=== PATIENT | male | born 1950 | race Asian ===

== ENCOUNTER 2017-04-16 19:46 | Outpatient (CLI) | payer MEDICARE, OTHER ==
--- NOTE | 2017-04-17 00:59 | Ultrasound Report ---
EXAM: BILATERAL LOWER EXTREMITY VENOUS ULTRASOUND EXAM DATE: 04/16/2017 08:46 PM. CLINICAL HISTORY: Deep venous thrombosis. On blood thinners. COMPARISON: Ultrasound duplex extremity veins right lower extremity 12/09/2010. TECHNIQUE: Real-time sonographic vascular imaging was performed by the spinal surgeon through the lower extremities utilizing both color-flow and Doppler spectral analysis. Multiple scheduling representative static i mages were saved for review. FINDINGS: Right: Common Femoral Vein (CFV): Normal. CFV-GSV Junction: Normal. Profunda Femoral Vein (PFV): Normal. Femoral Vein (FV) Prox: Normal. Femoral Vein (FV) Mid: Normal. Femoral Vein (FV) Dist: Normal. Popliteal Vein: Normal. Posterior Tibial Veins: Normal. Peroneal Veins: Normal. Left: Common Femoral Vein (CFV): Normal. CFV-GSV Junction: Normal. Profunda Femoral Vein (PFV): Normal. Femoral Vein (FV) Prox: Normal. Femoral Vein (FV) Mid: Normal. Femoral Vein (FV) Dist: Normal. Popliteal Vein: Normal. Posterior Tibial Veins: Not well seen Peroneal Veins: Not well seen IMPRESSION: No evidence for deep venous thrombosis bilaterally. See above. [facility] Referring Provider Line: [phone] SITE ID: [id number]
== END 2017-04-16 19:47 | disposition home or self-care (01) ==
LOC: DI 19:46
PROVIDERS: ATTEND Internal Medicine Nephrology
DX: I82.401 Acute embolism and thrombosis of unspecified deep veins of right lower extremity (principal)
CPT/HCPCS: 93970

== ENCOUNTER 2017-08-07 08:57 | Outpatient (CLI) | payer MEDICARE, OTHER ==
--- NOTE | 2017-08-07 17:13 | Ultrasound Report ---
ABDOMEN ULTRASOUND COMPLETE: 08/07/2017 COMPARISON: None. INDICATION: Abdominal distention. History of kidney transplant. TECHNIQUE: Sonographic evaluation of the abdomen was performed. FINDINGS: The liver appears normal in size and contour without masses. Portal venous flow is direct ed toward the liver. There is no ascites. The common bile duct is nondilated. Gallbladder evaluation is unremarkable without gallstones, wall thickening, or surrounding fluid. The kidneys are atrophic, consistent with a history of chronic renal disease and renal transplant. T he pancreas is not well visualized due to overlying bowel gas. The spleen is grossly unremarkable. Transplant kidney measures 12.5 cm in long axis, and demonstrates normal color flow about the hilum. There is no free fluid in the pelvis. IMPRESSION: 1. GROSSLY NORMAL APPEARANCE OF TRANSPLANTED KIDNEY IN THE PELVIS. 2. OTHERWISE, NEGATIVE ABDOMEN EVALUATION, APART FROM CHRONIC INTRINSIC RENAL DISEASE. 14:9:50 JOB #: [id number] EXT JOB #:[id number]
--- NOTE | 2017-08-07 18:29 | CT Report ---
NONCONTRAST CHEST CT: 08/07/2017 No comparisons. INDICATION: Pleural disease. Immunocompromised with cough. TECHNIQUE: Noncontrast chest CT was performed from the thoracic inlet to the adrenal glands at 5 mm collimation. Coronal and sagittal reformats were performed. FINDINGS: There is left pulmonary volume loss. There are calcified and noncalcified pleural plaques, predominantly the mid and lower left lung. No nodules or pulmonary masses are demonstrated in other regards. There are dense atherosclerotic calcifications of the aorta and coronary arteries. There is no mediastinal or hilar adenopathy seen in the absence of intravenous contrast. The kidneys appear atrophic. Limited noncontrast evaluation of the upper abdomen is grossly unremarkable, apart from a right upper quadrant anterior eggshell calcification, of unlikely significance. Prior sternotomy is noted. No bone lesions are seen in other regards. Soft tissues are otherwise grossly unremarkable. IMPRESSION: LEFT CALCIFIED AND NONCALCIFIED PLEURAL PLAQUES. ATROPHIC KIDNEYS ARE CONSISTENT WITH CHRONIC KIDNEY DISEASE. CORONARY ARTERY DISEASE. JOB #: [id number] EXT JOB #: [id number] [facility]
== END 2017-08-07 08:58 | disposition home or self-care (01) ==
LOC: DI 08:57
PROVIDERS: ATTEND Family Medicine
DX: R91.8 Other nonspecific abnormal finding of lung field (principal); I25.10 Atherosclerotic heart disease of native coronary artery without angina pectoris; R14.0 Abdominal distension (gaseous); N26.1 Atrophy of kidney (terminal); N18.9 Chronic kidney disease, unspecified; Z94.0 Kidney transplant status
CPT/HCPCS: 71250; 76700

== ENCOUNTER 2017-11-27 22:45 | Inpatient (IN) | payer MEDICARE, OTHER ==
[2017-11-27] MEDS ORDERED: ALBUTEROL NEB 2.5 MG/3 ML INH STA (23:01)
--- NOTE | 2017-11-27 23:11 | ED Physician Documentation ---
PD HPI URI - Stated complaint Stated Complaint: FEVER/SOA - Chief complaint Chief Complaint: Resp - History obtained from History obtained from: Patient, Family - History of Present Illness Timing - onset: Today Timing duration: Hours Timing details: Gradual onset, Still present Associated symptoms: Fever, Chills, Productive cough Improves by: Rest, Medication Similar symptoms before: Diagnosis (pneumonia) Recently seen: Not recently seen - Additional information Additional information: 67-year-old male status post renal transplant and CABG has was in his usual state of health yesterday he had a slight cough. Today he did not feel well this afternoon and after taking a shower this evening, he became acutely short of breath and developed a fever. He is come to the emergency department with fever and shortness of breath and the symptoms have come on rather suddenly. Review of Systems Constitutional: reports: Fever, Chills Eyes: denies: Decreased vision Ears: denies: Ear pain Nose: reports: Congestion. denies: Rhinorrhea / runny nose Throat: denies: Sore throat Cardiac: denies: Chest pain / pressure, Palpitations Respiratory: reports: Dyspnea, Cough, Wheezing GI: denies: Abdominal Pain, Nausea, Vomiting : denies: Dysuria, Frequency Skin: denies: Rash Musculoskeletal: denies: Neck pain Neurologic: reports: Generalized weakness. denies: Focal weakness, Numbness PD PAST MEDICAL HISTORY - Past Medical History Past Medical History: Yes Cardiovascular: Congestive heart failure, Hypertension, High cholesterol, Coronary artery disease - Past Surgical History Past Surgical History: Yes Cardiovascular: Coronary stent - Present Medications Home Medications: Ambulatory Orders Medication Instructions Recorded Confirmed Allopurinol 150 mg PO QPM 11/28/17 Aspirin 325 mg PO DAILY 11/28/17 Carvedilol [Coreg] 6.25 mg PO DAILY 11/28/17 Clopidogrel [Plavix] 75 mg PO DAILY 11/28/17 Folic Acid 1 mg PO DAILY 11/28/17 Gabapentin 300 mg PO DAILY 11/28/17 Insulin Aspart [NovoLOG] 11/28/17 Insulin Glargine [Lantus Solostar] 20 unit ACHS 11/28/17 11/28/17 Lisinopril/Hydrochlorothiazide 0.5 each PO 11/28/17 [Lisinopril-Hctz 10-12.5 mg Tab] Magnesium Oxide [Magnesium] 400 mg PO BID 11/28/17 11/28/17 - Allergies Allergies/Adverse Reactions: Allergies Allergy/AdvReac Type Severity Reaction Status Date / Time ibuprofen AdvReac Unknown Verified 11/27/17 22:56 - Social History Does the pt smoke?: No Smoking Status: Never smoker PD ED PE NORMAL - Vitals Vital signs reviewed: Yes (febrile and hypertensive) - General General: Alert and oriented X 3, Well developed/nourished, Other (tachypneic at rest) - HEENT HEENT: Atraumatic, PERRL, EOMI, Ears normal, Moist mucous membranes, Pharynx benign - Neck Neck: Supple, no meningeal sign, No bony TTP - Cardiac Cardiac: RRR, No murmur - Respiratory Respiratory: Other (tachypneic with left mid lung field rhonchi anteriorly diminished breath sounnds bilaterlly) - Abdomen Abdomen: Soft, Non tender - Back Back: No CVA TTP, No spinal TTP - Derm Derm: Normal color, Warm and dry, No rash - Extremities Extremities: No deformity, No edema - Neuro Neuro: No motor deficit, No sensory deficit Eye Opening: Spontaneous Motor: Obeys Commands Verbal: Oriented GCS Score: 15 Results - Vitals Vitals: Vital Signs - 24 hr 11/27/17 11/27/17 11/27/17 22:50 23:09 23:20 Temperature 39.1 C H Heart Rate 90 87 84 Respiratory 20 30 H 20 Rate Blood Pressure 187/84 H 182/82 H O2 Saturation 94 93 11/27/17 11/28/17 23:48 00:47 Temperature 39.3 C H 38.5 C H Heart Rate 81 77 Respiratory 29 H 25 H Rate Blood Pressure 163/73 H 128/61 O2 Saturation 96 97 Oxygen O2 Source Nasal cannula Oxygen Flow Rate 2 - EKG (time done) 2305 Rate: Rate (enter#) (88) Intervals: Prolonged AL Ischemia: Q waves (consistent with anterior ) Compare to prior EKG: Old EKG unavailable Computer interpretation: Agree with computer - Labs Labs: Laboratory Tests 11/27/17 11/27/17 11/27/17 22:57 23:20 23:20 WBC 8.6 RBC 3.98 L Hgb 13.5 L Hct 40.4 L MCV 101.3 H MCH 33.9 H MCHC 33.5 RDW 14.0 Plt Count 111 L MPV 9.8 Neut # 6.7 H Lymph # 0.9 L Trigg # 0.7 Eos # 0.2 Baso # 0.1 Absolute Nucleated RBC 0.00 Nucleated RBC % 0.0 Sodium 140 Potassium 4.8 Chloride 106 Carbon Dioxide 20 L Anion Gap 14.0 H BUN 30 H Creatinine 1.3 H Estimated GFR (MDRD) 55 L Glucose 115 H Calcium 8.9 Total Bilirubin 1.4 H AST 31 ALT 22 Alkaline Phosphatase 55 Total Protein 6.8 Albumin 4.1 Globulin 2.7 Albumin/Globulin Ratio 1.5 Lipase 16 L Influenza A (Rapid) Negative Influenza B (Rapid) Negative Influenza Types A,B Ag - - Rads (name of study) 1 view chest Radiology: Prelim report reviewed (Impression: Mild CHF, concomitant pneumonia difficult to exclude given history.), EMP read indepedently, See rad report Procedures - IVC sono (time) 2320 Bedside IVC sono: IVC measures (cm) (1.5), IVC collapsed c insp (cm) (1.1), Collapsibility index (.2666), Euvolemia PD MEDICAL DECISION MAKING - ED course Complexity details: reviewed old records, reviewed results, re-evaluated patient , considered differential, d/w patient, d/w family ED course: 67-year-old male with history of renal failure status post transplant and CABG has developed an acute fever and appears to have bilateral infiltrates on chest x-ray. He is administered a DuoNeb treatment on arrival to the emergency department. His volume status appears euvolemic on arrival and I do not think he is in acute failure. He is administered saline at 150 mL's an hour. He is administered Rocephin 1 g intravenously. Departure - Departure Disposition: [address] [facility] DC/Xfer Clinical Impression: Pneumonia Qualifiers: Pneumonia type: due to unspecified organism Laterality: bilateral Lung location : lower lobe of lung Qualified Code(s): J18.9 - Pneumonia, unspecified organism Condition: Stable
[2017-11-27] MEDS ORDERED: ACETAMINOPHEN 325 MG TABLET PO STA (23:21)
[2017-11-27 23:53] LABS: BASOPHILS # (AUTO) 0.1 10^3/uL (0.0-0.1); BASOPHILS % (AUTO) 0.6 %; EOSINOPHILS # (AUTO) 0.2 10^3/uL (0.0-0.7); EOSINOPHILS % (AUTO) 2.5 %; HGB - HEMOGLOBIN 13.5 g/dL (14.0-18.0); LYMPHOCYTES # (AUTO) 0.9 10^3/uL (1.5-3.5); LYMPHOCYTES % (AUTO) 10.8 %; MEAN CORPUSCULAR HEMOGLOBIN 33.9 pg (27.0-31.0); MEAN CORPUSCULAR HGB CONC 33.5 g/dL (32.0-36.0); MEAN CORPUSCULAR VOLUME 101.3 fL (80.0-94.0); MEAN PLATELET VOLUME 9.8 fL (7.4-11.4); MONOCYTES # (AUTO) 0.7 10^3/uL (0.0-1.0); MONOCYTES % (AUTO) 8.3 %; NEUTROPHILS # (AUTO) 6.7 10^3/uL (1.5-6.6); NEUTROPHILS % (AUTO) 77.8 %; PLT - PLATELET COUNT 111 10^3/uL (130-450); RED BLOOD COUNT 3.98 10^6/uL (4.70-6.10); WHITE BLOOD COUNT 8.6 x10^3/uL (4.8-10.8)
[2017-11-28 00:01] LABS: ALBUMIN 4.1 g/dL (3.2-5.5); ALBUMIN/GLOBULIN RATIO 1.5 (1.0-2.2); BILIRUBIN,TOTAL 1.4 mg/dL (0.2-1.0); CALCIUM 8.9 mg/dL (8.5-10.3); CREATININE 1.3 mg/dL (0.6-1.2); TOTAL PROTEIN 6.8 g/dL (6.7-8.2)
--- NOTE | 2017-11-28 00:02 | XRAY Preliminary Report ---
Exam: XR CHEST 1 VIEW X-RAY IMPRESSION: Mild CHF. Concomitant pneumonia difficult to exclude given history. [facility] SITE ID: [id number]
[2017-11-28] MEDS ORDERED: cefTRIAXone 1 GM in SODIUM CHLORIDE 0.9% MINIBAG 100 ML IV STA (00:04)
[2017-11-28] MEDS ORDERED: SODIUM CHLORIDE 0.9% 1,000 ML IV ONE (00:04)
--- NOTE | 2017-11-28 00:07 | XRAY Report ---
EXAM: CHEST RADIOGRAPHY EXAM DATE: 11/27/2017 11:39 PM. CLINICAL HISTORY: Cough, congestion, fever. COMPARISON: CT and chest x-ray 08/07/2017. TECHNIQUE: 1 view. FINDINGS: Lungs/Pleura: Vascular congestion. Diffuse minimal interstitial opacities. Left lung pleural parenchy mal scarring present. No large effusion. No gross pneumothorax. Mediastinum: Mild cardiomegaly. No mediastinal shift. Other: Post CABG. IMPRESSION: Mild CHF. Concomitant pneumonia difficult to exclude given history. [facility] Referring Provider Line: [phone] SITE ID: [id number]
[2017-11-28] MEDS ORDERED: ZOLPIDEM 5 MG TABLET PO PRN (01:24)
[2017-11-28] MEDS ORDERED: ACETAMINOPHEN 325 MG TABLET PO PRN (01:24)
[2017-11-28] MEDS ORDERED: HYDROmorphone 1 MG/ML SYRINGE IVP PRN (01:24)
[2017-11-28] MEDS ORDERED: PROCHLORPERAZINE 10 MG/2 ML VIAL IVP PRN (01:24)
[2017-11-28] MEDS ORDERED: MORPHINE 2 MG/ML CARPUJECT IVP PRN (01:24)
[2017-11-28 01:47] LABS: BILIRUBIN,URINE NEGATIVE (NEGATIVE); GLUCOSE, URINE (UA) NEGATIVE (NEGATIVE); KETONES,URINE (UA) NEGATIVE (NEGATIVE); LEUKOCYTE ESTERASE, URINE NEGATIVE (NEGATIVE); NITRITE,URINE NEGATIVE (NEGATIVE); OCCULT BLOOD,URINE NEGATIVE (NEGATIVE); PH,URINE 5.5 PH (5.0-7.5); PROTEIN,URINE TRACE mg/dL (NEGATIVE); UROBILINOGEN,URINE 0.2 (NORMAL) E.U./dL (NORMAL)
[2017-11-28 02:00] LABS: BACTERIA,URINE None Seen /HPF (None Seen); CLARITY,URINE CLEAR (CLEAR); RBC,URINE None Seen /HPF (0-5); SPERM,URINE PRESENT; SQUAMOUS EPITHELIAL CELL,UR NONE SEEN (<= Few)
[2017-11-28] MEDS ORDERED: SODIUM CHLORIDE 0.9% 1,000 ML IV SCH (02:00)
[2017-11-28] MEDS: AZITHROMYCIN INJ 500 MG in SODIUM CHLORIDE 0.9% 250 ML IV SCH (03:10)
--- NOTE | 2017-11-28 04:00 | HISTORY & PHYSICAL EXAMINATION ---
DATE OF SERVICE: Physician: Edie Villegas MD DATE OF ADMISSION: 11/28/2017 HISTORY OF PRESENT ILLNESS: This is a 67-year-old male of [place] descent who has a history of diabetes on insulin, hypertension, coronary artery disease with prior bypass surgery, kidney transplant. The patient developed a cough yesterday and then today felt unwell , and then developed a fever and rapidly worsening shortness of breath, and presented to the emergency room. He required nebulizer treatments in the emergency room for significant shortness of breath and his chest x-ray shows probable pneumonia, and he is admitted for management of a fever, pneumonia with underlying diabetes and renal transplant. PAST MEDICAL HISTORY: Diabetes mellitus, hypertension, bypass surgery, kidney transplant 6 years ago, hyperlipidemia. REVIEW OF SYSTEMS: The patient and family report that a family was sick with a cold and cough and fever, and maybe this is where he caught the infection from since he is immunocompromised on tamsulosin. A comprehensive review of systems was performed and the pertinent positives are as dictated here. ALLERGIES: IBUPROFEN, WHICH CAUSED AN UNKNOWN REACTION. MEDICATIONS AT HOME (this may not be an entire list) 1. Allopurinol 150 mg p.o. q.p.m. 2. Adult dose aspirin daily. 3. Carvedilol 6.25 mg p.o. daily. 4. Plavix 75 mg p.o. daily. 5. Folic acid 1 mg p.o. daily. 6. Gabapentin 300 mg p.o. daily. 7. Possibly NovoLog insulin, unknown dose daily. 8. Lantus insulin 20 units possibly at a.c. and at bedtime. 9. Lisinopril/HCTZ 10/12.5 mg half a tablet unknown frequency. 10. Magnesium 400 mg p.o. b.i.d. 11. Possibly Tacrolumus 12. Possibly Prednisone SOCIAL HISTORY: The patient never smoked, drinks no alcohol, uses no illicit drugs. PHYSICAL EXAMINATION GENERAL: A [place] male who is supine in bed and appears fatigued, inno respiratory distress. VITAL SIGNS: Blood pressure 130/49, heart rate 70-80 in sinus rhythm. Maximum temperature was 39.3 degrees C, respiratory rate was 29 in the emergency room and is now 18, oxygen saturation 97% on 2 liters per nasal cannula. HEENT: Unremarkable with moist oral mucosa. NECK: Shows no JVD in a supine position. No carotid bruits are heard. No thyromegaly or lymphadenopathy seen. CHEST: Diminished breath sounds in bilateral bases and the left has scant rales. HEART: Sounds are normal, without audible murmur. ABDOMEN: Soft with normal bowel sounds. No organomegaly. EXTREMITIES: Show no clubbing, cyanosis or edema. NEUROLOGIC: Neurologically intact grossly. LABORATORIES: Sodium 140, potassium 4.8, BUN 30; creatinine 1.3, which appears to be his baseline. Glucose 115. Lactic acid 0.9, bilirubin 1.4. Troponin 0.05. BNP 946. White blood count 8.6 with a left shift, hemoglobin 13.5 with an elevated MCV of 101, platelet count low at 111. Urinalysis unremarkable. Influenza A and B by serology is negative. Chest x-ray: Possible bilateral pulmonary edema or bilateral infiltrates. EKG: Normal sinus rhythm at 88. QS waves are present in V1 through V3 with minimal J-point elevation in V1 and V2. Inferolateral ST-T abnormalitie. And all these findings are old from a prior EKG. IMPRESSION/DIAGNOSES 1. Community-acquired pneumonia with fever, shortness of breath and bilateral infiltrates vs CHF on chest x-ray. Possible CHF with elevated BNP (but his baseline BNP is unknown) . 2. Kidney transplant with good renal function. 3. Coronary artery disease history with coronary bypass. 4. Hypertension history. 5. Diabetes mellitus, on insulin. PLAN: Place the patient on telemetry. Cycle troponins to rule out SD. Follow BNP as well, as the chest x-ray, since is inconclusive. Start empiric antibiotics for community -acquired pneumonia: IV Zithromax and IV ceftriaxone. Obtain blood and sputum cultures before starting antibiotics. Confirm the patient's insulin doses and continue these, along with fingersticks and sliding scale insulin coverage and a diabetic diet. Continue with IV hydration. Confirm his other meds, with the help of our Pharmacist, as the list may be inaccurate. CODE STATUS: FULL CODE. DEEP VENOUS THROMBOSIS PROPHYLAXIS: Lovenox. ATTESTATION: The patient is expected to be discharged or transferred to another facility within 96 hours: Yes. TD: 11/28/2017 03:58 [facility]
[2017-11-28] MEDS: SODIUM CHLORIDE FLUSH 0.9% 10 ML SYRINGE IVP SCH ×3 (05:48→20:52)
[2017-11-28 06:08] LABS: BASOPHILS # (AUTO) 0.1 10^3/uL (0.0-0.1); BASOPHILS % (AUTO) 0.8 %; EOSINOPHILS # (AUTO) 0.2 10^3/uL (0.0-0.7); EOSINOPHILS % (AUTO) 2.9 %; HGB - HEMOGLOBIN 12.1 g/dL (14.0-18.0); LYMPHOCYTES # (AUTO) 0.8 10^3/uL (1.5-3.5); LYMPHOCYTES % (AUTO) 10.7 %; MEAN CORPUSCULAR HEMOGLOBIN 33.4 pg (27.0-31.0); MEAN CORPUSCULAR HGB CONC 32.7 g/dL (32.0-36.0); MEAN CORPUSCULAR VOLUME 102.3 fL (80.0-94.0); MEAN PLATELET VOLUME 9.5 fL (7.4-11.4); MONOCYTES # (AUTO) 0.8 10^3/uL (0.0-1.0); MONOCYTES % (AUTO) 10.2 %; NEUTROPHILS # (AUTO) 5.7 10^3/uL (1.5-6.6); NEUTROPHILS % (AUTO) 75.4 %; PLT - PLATELET COUNT 102 10^3/uL (130-450); RED BLOOD COUNT 3.61 10^6/uL (4.70-6.10); WHITE BLOOD COUNT 7.6 x10^3/uL (4.8-10.8)
[2017-11-28 06:13] LABS: CALCIUM 8.4 mg/dL (8.5-10.3); CREATININE 1.4 mg/dL (0.6-1.2)
[2017-11-28 06:21] LABS: HB2 TOTAL 13.3 g/dL; HEMOGLOBIN A1C 0.71 g/dL
[2017-11-28] MEDS ORDERED: INSULIN GLARGINE 300 UNIT/3 ML PEN SUBQ SCH (07:00)
--- NOTE | 2017-11-28 07:37 | PROVIDER PROGRESS NOTE ---
Subjective - Prog Note Date Prog Note Date: 11/28/17 Prog Note Time: 07:37 - Subjective Pt reports feeling: No change Subjective: Dane claims that he has been tired today, and slept well last night. He denies SOB, chest pain, N/V or a new cough. Current Medications - Current Medications Current Medications: Active Medications Acetaminophen (Tylenol) 650 mg PO Q4HR PRN PRN Reason: Pain or Fever > 38C (100.4F) Allopurinol (Zyloprim) 150 mg PO QPM [facility] Aspirin (Ecotrin) 325 mg PO DAILY [facility] Carvedilol (Coreg) 6.25 mg PO BID [facility] Clopidogrel Bisulfate (Plavix) 75 mg PO DAILY [facility] Last Admin: 11/28/17 08:11 Dose: 75 mg Enoxaparin Sodium (Lovenox) 40 mg SUBQ DAILY [facility] Last Admin: 11/28/17 08:11 Dose: 40 mg Folic Acid () 1 mg PO DAILY [facility] Last Admin: 11/28/17 08:12 Dose: 1 mg Furosemide (Lasix Inj 40 Mg Vial) 40 mg IVP DAILY [facility] Last Admin: 11/28/17 12:51 Dose: 40 mg Gabapentin (Neurontin) 300 mg PO BID [facility] Hydromorphone HCl (Dilaudid Inj Syringe) 0.5 mg IVP Q2H PRN PRN Reason: Pain 8 to 10 Ceftriaxone Sodium 1 gm/ (Sodium Chloride) 100 mls @ 200 mls/hr IV DAILY@2100 [facility] Azithromycin 500 mg/ Sodium (Chloride) 250 mls @ 250 mls/hr IV DAILY@0700 [facility] Last Infusion: 11/28/17 04:10 Dose: Infused Insulin Aspart (Novolog) 1 - 5 unit SUBQ 0800,1200,1700,2100 [facility] PRN Reason: Protocol Last Admin: 11/28/17 16:12 Dose: 3 unit Insulin Glargine (Lantus Solostar) 20 unit SUBQ QPM [facility] Magnesium Oxide (Mag Ox) 800 mg PO 1200,1700 [facility] Last Admin: 11/28/17 16:11 Dose: 800 mg Morphine Sulfate (Morphine (Carpuject)) 2 mg IVP Q2HR PRN PRN Reason: Dyspnea [Lisinopril-Hctz 10- (12.5 Mg Tab] Tab) 0.5 each PO DAILY [facility] Last Admin: 11/28/17 11:57 Dose: 0.5 each (Cinacalcet Hcl [ (Sensipar] 30 Mg) Tab) 1 each PO Q48H [facility] Last Admin: 11/28/17 11:57 Dose: 1 each (Myfortic) Mycophenolate 180 Mg Er Tab 1 each PO BID [facility] Polyethylene Glycol (Miralax) 17 gm PO DAILY [facility] Last Admin: 11/28/17 08:12 Dose: Not Given Pravastatin Sodium (Pravachol) 40 mg PO DAILY [facility] Last Admin: 11/28/17 11:56 Dose: Not Given Prednisone (Deltasone) 5 mg PO DAILY [facility] Last Admin: 11/28/17 08:10 Dose: 5 mg Prochlorperazine Edisylate (Compazine Inj) 10 mg IVP Q6HR PRN PRN Reason: Nausea / Vomiting Ranitidine HCl (Zantac) 300 mg PO QPM [facility] Sodium Chloride (Normal Saline Flush 0.9%) 10 ml IVP PRN PRN PRN Reason: NEEDED PER PROVIDER ORDERS Last Admin: 11/28/17 12:54 Dose: 20 ml Sodium Chloride (Normal Saline Flush 0.9%) 10 ml IVP Q8HR [facility] Last Admin: 11/28/17 08:16 Dose: 10 ml Tacrolimus (Prograf) 1 mg PO BID [facility] Last Admin: 11/28/17 08:08 Dose: 1 mg Tamsulosin HCl (Flomax) 0.4 mg PO QPM [facility] Zolpidem Tartrate (Ambien) 5 mg PO QPM PRN PRN Reason: Insomnia Carvedilol [Coreg] 6.25 mg PO BID 11/28/17 Cinacalcet HCl [Sensipar] 30 mg PO Q2D@1200 11/28/17 Clopidogrel [Plavix] 75 mg PO DAILY 11/28/17 Insulin Aspart [NovoLOG] 0 - 15 units SUBQ TIDWM PRN 11/28/17 Insulin Glargine [Lantus Solostar] 20 unit SUBQ QPM 11/28/17 Lisinopril/Hydrochlorothiazide [Lisinopril-Hctz 10-12.5 mg Tab] 0.5 tab PO DAILY 11/28/17 Magnesium Oxide [Magnesium] 800 mg PO 1200,1700 11/28/17 Mycophenolate Sodium [Mycophenolic Acid] 180 mg PO BID 11/28/17 Pravastatin [Pravachol] 40 mg PO DAILY 11/28/17 PredniSONE [PredniSONE INTENSOL] 5 mg PO DAILY 11/28/17 RX: Allopurinol 150 mg PO QPM 11/28/17 RX: Aspirin EC [Ecotrin] 325 mg PO DAILY 11/28/17 RX: Folic Acid 1 mg PO DAILY 11/28/17 RX: Gabapentin 300 mg PO BID 11/28/17 RX: Tacrolimus 1 mg PO BID 11/28/17 Tamsulosin [Flomax] 0.4 cap PO QPM 11/28/17 raNITIdine [Zantac] 300 mg PO QPM 11/28/17 Objective - Vital Signs/Intake & Output Reviewed Vital Signs: Yes Vital Signs: Vital Signs x48h Temp Pulse Pulse Resp BP BP Pulse Ox 11/28/17 05:53 37.3 C 68 20 137/64 H 100 11/28/17 02:20 37.6 C H 73 18 129/49 L 97 11/28/17 01:38 37.4 C 72 23 133/61 H 98 Intake & Output: Intake & Output 11/25/17 11/26/17 11/27/17 11/28/17 23:59 23:59 23:59 23:59 Intake Total 350 Output Total 50 Balance 300 - Objective General Appearance: positive: No acute distress, Alert Eyes Bilateral: positive: Normal inspection Eyes: OU Conjunctivae pale ENT: positive: ENT inspection nml, Pharynx nml, Dry mucous membranes Neck: positive: Nml inspection, Thyroid nml Respiratory: positive: Chest non-tender, No respiratory distress, Wheezes, Other (crackles) - Lab Results Fish Bones: 11/29/17 04:55 11/29/17 04:55 Other Labs: Lab Results x24hrs 11/28/17 11/28/17 11/28/17 Range/Units 05:49 05:49 05:49 WBC (4.8-10.8) x10^3/uL RBC (4.70-6.10) 10^6/uL Hgb (14.0-18.0) g/dL Hct (42.0-52.0) % MCV (80.0-94.0) fL MCH (27.0-31.0) pg MCHC (32.0-36.0) g/dL RDW (12.0-15.0) % Plt Count (130-450) 10^3/uL MPV (7.4-11.4) fL Neut # (1.5-6.6) 10^3/uL Lymph # (1.5-3.5) 10^3/uL Hinds # (0.0-1.0) 10^3/uL Eos # (0.0-0.7) 10^3/uL Baso # (0.0-0.1) 10^3/uL Absolute Nucleated RBC x10^3/uL Nucleated RBC % /100WBC Sodium (135-145) mmol/L Potassium (3.5-5.0) mmol/L Chloride (101-111) mmol/L Carbon Dioxide (21-32) mmol/L Anion Gap (6-13) BUN (6-20) mg/dL Creatinine (0.6-1.2) mg/dL Estimated GFR (MDRD) (>89) Glucose (70-100) mg/dL Glycated Hemoglobin 7.0 H (4.6-6.2) % Estim Average Glucose 154 H (70-100) Calcium (8.5-10.3) mg/dL Troponin I 0.06 (<0.49) ng/mL B-Natriuretic Peptide 978 H (5-100) pg/mL Urine Color Urine Clarity (CLEAR) Urine pH (5.0-7.5) PH Ur Specific [place] (1.002-1.030) Urine Protein (NEGATIVE) mg/dL Urine Glucose (UA) (NEGATIVE) mg/dL Urine Ketones (NEGATIVE) mg/dL Urine Occult Blood (NEGATIVE) Urine Nitrite (NEGATIVE) Urine Bilirubin (NEGATIVE) Urine Urobilinogen (NORMAL) E.U./dL Ur Leukocyte Esterase (NEGATIVE) Urine RBC (0-5) /HPF Urine WBC (0-3) /HPF Ur Squamous Epith Cells (<= Few) Urine Bacteria (None Seen) /HPF Urine Sperm Urine Culture Comments 11/28/17 11/28/17 11/28/17 Range/Units 05:49 05:49 01:25 WBC 7.6 (4.8-10.8) x10^3/uL RBC 3.61 L (4.70-6.10) 10^6/uL Hgb 12.1 L (14.0-18.0) g/dL Hct 36.9 L (42.0-52.0) % MCV 102.3 H (80.0-94.0) fL MCH 33.4 H (27.0-31.0) pg MCHC 32.7 (32.0-36.0) g/dL RDW 14.0 (12.0-15.0) % Plt Count 102 L (130-450) 10^3/uL MPV 9.5 (7.4-11.4) fL Neut # 5.7 (1.5-6.6) 10^3/uL Lymph # 0.8 L (1.5-3.5) 10^3/uL Hinds # 0.8 (0.0-1.0) 10^3/uL Eos # 0.2 (0.0-0.7) 10^3/uL Baso # 0.1 (0.0-0.1) 10^3/uL Absolute Nucleated RBC 0.00 x10^3/uL Nucleated RBC % 0.1 /100WBC Sodium 138 (135-145) mmol/L Potassium 5.0 (3.5-5.0) mmol/L Chloride 105 (101-111) mmol/L Carbon Dioxide 23 (21-32) mmol/L Anion Gap 10.0 (6-13) BUN 32 H (6-20) mg/dL Creatinine 1.4 H (0.6-1.2) mg/dL Estimated GFR (MDRD) 51 L (>89) Glucose 127 H (70-100) mg/dL Glycated Hemoglobin (4.6-6.2) % Estim Average Glucose (70-100) Calcium 8.4 L (8.5-10.3) mg/dL Troponin I (<0.49) ng/mL B-Natriuretic Peptide (5-100) pg/mL Urine Color YELLOW Urine Clarity CLEAR (CLEAR) Urine pH 5.5 (5.0-7.5) PH Ur Specific [place] 1.025 (1.002-1.030) Urine Protein TRACE (NEGATIVE) mg/dL Urine Glucose (UA) NEGATIVE (NEGATIVE) mg/dL Urine Ketones NEGATIVE (NEGATIVE) mg/dL Urine Occult Blood NEGATIVE (NEGATIVE) Urine Nitrite NEGATIVE (NEGATIVE) Urine Bilirubin NEGATIVE (NEGATIVE) Urine Urobilinogen 0.2 (NORMAL) (NORMAL) E.U./dL Ur Leukocyte Esterase NEGATIVE (NEGATIVE) Urine RBC None Seen (0-5) /HPF Urine WBC 0-3 (0-3) /HPF Ur Squamous Epith Cells NONE SEEN (<= Few) Urine Bacteria None Seen (None Seen) /HPF Urine Sperm PRESENT Urine Culture Comments NOT INDICATED Assessment/Plan - Problem List (1) Pneumonia Impression: Bilateral infiltrates are noted on admission chest x-ray. Patient displays increased breathing efforts, requires oxygen and is wheezy on exam. Patient had an elevated temp, with a temp max of 39.1. Temps have been steadily decreasing and today is afebrile. Plan: Treat with IV antibiotics, and IV steroids were started today due to symptoms. We will continue to monitor vital signs and labs. Qualifiers: Pneumonia type: due to unspecified organism Laterality: bilateral Lung location: lower lobe of lung Qualified Code(s): J18.9 - Pneumonia, unspecified organism (2) Renal transplant recipient Impression: Patient is post op renal transplant and is followed by a electrician journeyman wireman out patient. He remains with impaired kidney function. His baseline creatinine is 1.3, with a creatinine max of 1.6. Plan: Avoid nephrotoxins, limit the use of diuretics and continue anti- rejection medications. Monitor out put, labs and vital signs. (3) Status post coronary artery bypass graft Impression: Patient is seen by a city engineer out patient. He follows up on a yearly basis. Due to his episode of tachycardia and acute pneumonia an echocardiogram was ordered and pending. Plan: Continue home medications and monitor on telemetry. (4) Diabetes mellitus type 2, insulin dependent Impression: Patient has a history of long standing DM, and is known to be insulin resistant. He needs increased doses of insulin. Plan: Continue insulin as close to his home schedule.
[2017-11-28] MEDS ORDERED: INSULIN ASPART 300 UNIT/3 ML PEN SUBQ SCH ×2 (08:00→17:11)
[2017-11-28] MEDS: TACROLIMUS 0.5 MG CAPSULE PO SCH ×2 (08:08→21:22)
[2017-11-28] MEDS: CLOPIDOGREL 75 MG TABLET PO SCH (08:11)
[2017-11-28] MEDS: ENOXAPARIN 40 MG/0.4 ML SYRINGE SUBQ SCH (08:11)
[2017-11-28] MEDS: FOLIC ACID 1 MG TABLET PO SCH (08:12)
[2017-11-28] MEDS: POLYETHYLENE GLYCOL 3350 17 GM PACKET PO SCH (08:12)
[2017-11-28] MEDS ORDERED: ASPIRIN 325 MG TABLET PO SCH (09:00)
[2017-11-28] MEDS ORDERED: FAMOTIDINE 20 MG TABLET PO SCH ×2 (09:00)
[2017-11-28] MEDS ORDERED: MAGNESIUM OXIDE 400 MG TABLET PO SCH ×2 (09:00→12:00)
[2017-11-28] MEDS ORDERED: GABAPENTIN 300 MG CAPSULE PO SCH (09:00)
[2017-11-28] MEDS ORDERED: predniSONE 5 MG TABLET PO SCH (09:00)
[2017-11-28] MEDS ORDERED: CINACALCET HCL 30 MG PO SCH ×2 (09:00→12:00)
[2017-11-28] MEDS ORDERED: CARVEDILOL 3.125 MG TABLET PO SCH (09:00)
[2017-11-28] MEDS: INSULIN ASPART 300 UNIT/3 ML PEN SUBQ SCH ×3 (11:48→20:53)
[2017-11-28] MEDS: PRAVASTATIN 40 MG TABLET PO SCH (11:56)
[2017-11-28] MEDS: FUROSEMIDE 40 MG/4 ML VIAL IVP SCH (12:51)
[2017-11-28] MEDS: SODIUM CHLORIDE FLUSH 0.9% 10 ML SYRINGE IVP PRN (12:54)
[2017-11-28] MEDS: MAGNESIUM OXIDE 400 MG TABLET PO SCH (16:11)
[2017-11-28] MEDS: methylPREDNISolone SUCCINATE 40 MG/ML VIAL IVP SCH ×3 (17:26→23:23)
[2017-11-28] MEDS ORDERED: LEVALBUTEROL 1.25 MG/3 ML NEB INH PRN (19:00)
[2017-11-28] MEDS: GABAPENTIN 300 MG CAPSULE PO SCH (20:50)
[2017-11-28] MEDS: ALLOPURINOL 100 MG TABLET PO SCH (20:50)
[2017-11-28] MEDS: TAMSULOSIN 0.4 MG CAPSULE PO SCH (20:50)
[2017-11-28] MEDS: CARVEDILOL 3.125 MG TABLET PO SCH (20:51)
[2017-11-28] MEDS: [UNRECOGNIZED DRUG - OTHER] PO SCH (20:52)
[2017-11-28] MEDS: INSULIN GLARGINE 300 UNIT/3 ML PEN SUBQ SCH (20:54)
[2017-11-28] MEDS ORDERED: PRAVASTATIN 40 MG TABLET PO SCH (21:00)
[2017-11-28] MEDS: cefTRIAXone 1 GM in SODIUM CHLORIDE 0.9% MINIBAG 100 ML IV SCH (21:04)
[2017-11-29 05:06] LABS: BASOPHILS # (AUTO) 0.1 10^3/uL (0.0-0.1); BASOPHILS % (AUTO) 1.1 %; EOSINOPHILS % (AUTO) 0.1 %; HGB - HEMOGLOBIN 12.1 g/dL (14.0-18.0); LYMPHOCYTES # (AUTO) 0.5 10^3/uL (1.5-3.5); LYMPHOCYTES % (AUTO) 9.9 %; MEAN CORPUSCULAR HEMOGLOBIN 32.9 pg (27.0-31.0); MEAN CORPUSCULAR HGB CONC 32.3 g/dL (32.0-36.0); MEAN CORPUSCULAR VOLUME 101.8 fL (80.0-94.0); MEAN PLATELET VOLUME 9.8 fL (7.4-11.4); MONOCYTES % (AUTO) 0.6 %; NEUTROPHILS # (AUTO) 4.3 10^3/uL (1.5-6.6); NEUTROPHILS % (AUTO) 88.3 %; PLT - PLATELET COUNT 103 10^3/uL (130-450); RED BLOOD COUNT 3.68 10^6/uL (4.70-6.10); RED CELL DISTRIBUTION WIDTH 13.6 % (12.0-15.0); WHITE BLOOD COUNT 4.9 x10^3/uL (4.8-10.8)
[2017-11-29 05:24] LABS: ALBUMIN 3.4 g/dL (3.2-5.5); ALBUMIN/GLOBULIN RATIO 1.4 (1.0-2.2); BILIRUBIN,TOTAL 0.9 mg/dL (0.2-1.0); CALCIUM 8.1 mg/dL (8.5-10.3); CREATININE 1.6 mg/dL (0.6-1.2); MAGNESIUM 1.4 mg/dL (1.7-2.8); TOTAL PROTEIN 5.9 g/dL (6.7-8.2)
[2017-11-29] MEDS: SODIUM CHLORIDE FLUSH 0.9% 10 ML SYRINGE IVP SCH ×3 (06:25→20:22)
[2017-11-29] MEDS: AZITHROMYCIN INJ 500 MG in SODIUM CHLORIDE 0.9% 250 ML IV SCH (06:25)
[2017-11-29] MEDS: INSULIN ASPART 300 UNIT/3 ML PEN SUBQ SCH ×5 (08:13→20:50)
[2017-11-29] MEDS: TACROLIMUS 0.5 MG CAPSULE PO SCH ×2 (08:14→20:19)
[2017-11-29] MEDS: [UNRECOGNIZED DRUG - OTHER] PO SCH ×2 (08:16→20:22)
[2017-11-29] MEDS: CARVEDILOL 3.125 MG TABLET PO SCH ×3 (08:19→20:48)
[2017-11-29] MEDS: CLOPIDOGREL 75 MG TABLET PO SCH (08:19)
[2017-11-29] MEDS: PRAVASTATIN 40 MG TABLET PO SCH (08:20)
[2017-11-29] MEDS: ASPIRIN EC 325 MG TABLET PO SCH (08:20)
[2017-11-29] MEDS: POLYETHYLENE GLYCOL 3350 17 GM PACKET PO SCH (08:20)
[2017-11-29] MEDS: GABAPENTIN 300 MG CAPSULE PO SCH ×2 (08:20→20:20)
[2017-11-29] MEDS: FOLIC ACID 1 MG TABLET PO SCH (08:20)
[2017-11-29] MEDS: FUROSEMIDE 40 MG/4 ML VIAL IVP SCH (08:21)
[2017-11-29] MEDS: methylPREDNISolone SUCCINATE 40 MG/ML VIAL IVP SCH (08:21)
[2017-11-29] MEDS: ENOXAPARIN 40 MG/0.4 ML SYRINGE SUBQ SCH (08:23)
[2017-11-29] MEDS: MAGNESIUM OXIDE 400 MG TABLET PO SCH ×2 (11:15→16:59)
[2017-11-29] MEDS ORDERED: INSULIN ASPART 300 UNIT/3 ML PEN SUBQ SCH ×2 (12:00→15:00)
[2017-11-29] MEDS ORDERED: MAGNESIUM SULFATE 2 GRAM 2 GM/50 ML BAG IV ONE (14:02)
[2017-11-29] MEDS: SODIUM CHLORIDE FLUSH 0.9% 10 ML SYRINGE IVP PRN ×2 (14:14→20:22)
--- NOTE | 2017-11-29 15:25 | PROVIDER PROGRESS NOTE ---
Subjective - Prog Note Date Prog Note Date: 11/29/17 Prog Note Time: 09:00 - Subjective Pt reports feeling: Improved Subjective: Patient notes less difficulty with wheezing and appetite is improved. He denies SOB, chest pain, N/V or an increased cough. Current Medications - Current Medications Current Medications: Active Medications Acetaminophen (Tylenol) 650 mg PO Q4HR PRN PRN Reason: Pain or Fever > 38C (100.4F) Last Admin: 11/28/17 16:52 Dose: 650 mg Allopurinol (Zyloprim) 150 mg PO QPM [facility] Last Admin: 11/28/17 20:50 Dose: 150 mg Aspirin (Ecotrin) 325 mg PO DAILY [facility] Last Admin: 11/29/17 08:20 Dose: 325 mg Carvedilol (Coreg) 6.25 mg PO BID [facility] Last Admin: 11/29/17 08:19 Dose: 6.25 mg Clopidogrel Bisulfate (Plavix) 75 mg PO DAILY [facility] Last Admin: 11/29/17 08:19 Dose: 75 mg Enoxaparin Sodium (Lovenox) 40 mg SUBQ DAILY [facility] Last Admin: 11/29/17 08:23 Dose: 40 mg Folic Acid () 1 mg PO DAILY [facility] Last Admin: 11/29/17 08:20 Dose: 1 mg Furosemide (Lasix Inj 40 Mg Vial) 40 mg IVP DAILY [facility] Last Admin: 11/29/17 08:21 Dose: 40 mg Gabapentin (Neurontin) 300 mg PO BID [facility] Last Admin: 11/29/17 08:20 Dose: 300 mg Hydromorphone HCl (Dilaudid Inj Syringe) 0.5 mg IVP Q2H PRN PRN Reason: Pain 8 to 10 Ceftriaxone Sodium 1 gm/ (Sodium Chloride) 100 mls @ 200 mls/hr IV DAILY@2100 [facility] Last Infusion: 11/28/17 21:37 Dose: Infused Azithromycin 500 mg/ Sodium (Chloride) 250 mls @ 250 mls/hr IV DAILY@0700 [facility] Last Admin: 11/29/17 06:25 Dose: 250 mls/hr Insulin Aspart (Novolog) 5 - 15 unit SUBQ 0800,1200,1700,2100 [facility] PRN Reason: Protocol Last Admin: 11/29/17 11:13 Dose: 11 unit Insulin Aspart (Novolog) 5 unit SUBQ TIDWM [facility] Insulin Glargine (Lantus Solostar) 20 unit SUBQ QPM [facility] Last Admin: 11/28/17 20:54 Dose: 20 unit Levalbuterol HCl (Xopenex) 1.25 mg INH RTQ4H PRN PRN Reason: WHEEZING/SHORTNESS OF BREATH Magnesium Oxide (Mag Ox) 800 mg PO 1200,1700 [facility] Last Admin: 11/29/17 11:15 Dose: 800 mg Methylprednisolone (Solu-Medrol (40mg Vial)) 40 mg IVP DAILY [facility] [Lisinopril-Hctz 10- (12.5 Mg Tab] Tab) 0.5 each PO DAILY [facility] Last Admin: 11/29/17 08:14 Dose: 0.5 each (Cinacalcet Hcl [ (Sensipar] 30 Mg) Tab) 1 each PO Q48H [facility] Last Admin: 11/28/17 11:57 Dose: 1 each (Myfortic) Mycophenolate 180 Mg Er Tab 1 each PO BID [facility] Last Admin: 11/29/17 08:16 Dose: 1 each Polyethylene Glycol (Miralax) 17 gm PO DAILY [facility] Last Admin: 11/29/17 08:20 Dose: Not Given Pravastatin Sodium (Pravachol) 40 mg PO DAILY [facility] Last Admin: 11/29/17 08:20 Dose: 40 mg Prochlorperazine Edisylate (Compazine Inj) 10 mg IVP Q6HR PRN PRN Reason: Nausea / Vomiting Ranitidine HCl (Zantac) 300 mg PO QPM [facility] Last Admin: 11/28/17 20:51 Dose: 300 mg Sodium Chloride (Normal Saline Flush 0.9%) 10 ml IVP PRN PRN PRN Reason: NEEDED PER PROVIDER ORDERS Last Admin: 11/29/17 14:14 Dose: 10 ml Sodium Chloride (Normal Saline Flush 0.9%) 10 ml IVP Q8HR [facility] Last Admin: 11/29/17 13:21 Dose: 10 ml Tacrolimus (Prograf) 1 mg PO BID [facility] Last Admin: 11/29/17 08:14 Dose: 1 mg Tamsulosin HCl (Flomax) 0.4 mg PO QPM [facility] Last Admin: 11/28/17 20:50 Dose: 0.4 mg Allopurinol 150 mg PO QPM 11/28/17 Aspirin EC [Ecotrin] 325 mg PO DAILY 11/28/17 Carvedilol [Coreg] 6.25 mg PO BID 11/28/17 Cinacalcet HCl [Sensipar] 30 mg PO Q2D@1200 11/28/17 Clopidogrel [Plavix] 75 mg PO DAILY 11/28/17 Folic Acid 1 mg PO DAILY 11/28/17 Gabapentin 300 mg PO BID 11/28/17 Insulin Aspart [NovoLOG] 0 - 15 units SUBQ TIDWM PRN 11/28/17 Insulin Glargine [Lantus Solostar] 20 unit SUBQ QPM 11/28/17 Lisinopril/Hydrochlorothiazide [Lisinopril-Hctz 10-12.5 mg Tab] 0.5 tab PO DAILY 11/28/17 Magnesium Oxide [Magnesium] 800 mg PO 1200,1700 11/28/17 Mycophenolate Sodium [Mycophenolic Acid] 180 mg PO BID 11/28/17 Pravastatin [Pravachol] 40 mg PO DAILY 11/28/17 PredniSONE [PredniSONE INTENSOL] 5 mg PO DAILY 11/28/17 Tacrolimus 1 mg PO BID 11/28/17 Tamsulosin [Flomax] 0.4 cap PO QPM 11/28/17 raNITIdine [Zantac] 300 mg PO QPM 11/28/17 Objective - Vital Signs/Intake & Output Reviewed Vital Signs: Yes Vital Signs: Vital Signs x48h Temp Pulse Resp BP Pulse Ox 11/29/17 12:35 36.7 C 70 18 145/59 H 98 11/29/17 07:57 36.6 C 75 18 152/77 H 99 Intake & Output: Intake & Output 11/26/17 11/27/17 11/28/17 11/29/17 23:59 23:59 23:59 23:59 Intake Total 2019 Output Total 50 Balance 1969 590 - Objective General Appearance: positive: No acute distress, Alert, Lethargic Eyes Bilateral: positive: Normal inspection, PERRL ENT: positive: ENT inspection nml, Pharynx nml, Dry mucous membranes Neck: positive: Nml inspection, Thyroid nml, No JVD, Stiff neck Respiratory: positive: Chest non-tender, No respiratory distress, Breath sounds nml Cardiovascular: positive: No gallop, Irregularly irregular, Systolic murmur, Decreased pulse(s) Peripheral Pulses: 1+ Radial (R), 1+ Radial (L) Abdomen: positive: Non-tender, No organomegaly, Nml bowel sounds, No distention Back: positive: Nml inspection Skin: positive: No rash, Warm, Dry Extremities: positive: Non-tender, Full ROM, Nml appearance, Pedal edema ( chronic BLE, dependent.) Neurologic/Psychiatric: positive: Oriented x3, CN's nml (2-12), Motor nml, Sensation nml, Depressed mood/affect Reflexes: Bicep (R): 2+, Bicep (L): 2+ - Lab Results Fish Bones: 11/29/17 04:55 11/29/17 04:55 Other Labs: Lab Results x24hrs 11/29/17 11/29/17 11/29/17 Range/Units 11:08 07:51 04:55 WBC (4.8-10.8) x10^3/uL RBC (4.70-6.10) 10^6/uL Hgb (14.0-18.0) g/dL Hct (42.0-52.0) % MCV (80.0-94.0) fL MCH (27.0-31.0) pg MCHC (32.0-36.0) g/dL RDW (12.0-15.0) % Plt Count (130-450) 10^3/uL MPV (7.4-11.4) fL Neut # (1.5-6.6) 10^3/uL Lymph # (1.5-3.5) 10^3/uL [place] # (0.0-1.0) 10^3/uL Eos # (0.0-0.7) 10^3/uL Baso # (0.0-0.1) 10^3/uL Absolute Nucleated RBC x10^3/uL Nucleated RBC % /100WBC Sodium (135-145) mmol/L Potassium (3.5-5.0) mmol/L Chloride (101-111) mmol/L Carbon Dioxide (21-32) mmol/L Anion Gap (6-13) BUN (6-20) mg/dL Creatinine (0.6-1.2) mg/dL Estimated GFR (MDRD) (>89) Glucose (70-100) mg/dL POC Whole Bld Glucose 332 H 211 H (70 - 100) mg/dL Calcium (8.5-10.3) mg/dL Magnesium (1.7-2.8) mg/dL Total Bilirubin (0.2-1.0) mg/dL AST (10-42) IU/L ALT (10-60) IU/L Alkaline Phosphatase (42-121) IU/L B-Natriuretic Peptide 803 H (5-100) pg/mL Total Protein (6.7-8.2) g/dL Albumin (3.2-5.5) g/dL Globulin (2.1-4.2) g/dL Albumin/Globulin Ratio (1.0-2.2) 11/29/17 11/29/17 11/28/17 Range/Units 04:55 04:55 23:40 WBC 4.9 (4.8-10.8) x10^3/uL RBC 3.68 L (4.70-6.10) 10^6/uL Hgb 12.1 L (14.0-18.0) g/dL Hct 37.5 L (42.0-52.0) % MCV 101.8 H (80.0-94.0) fL MCH 32.9 H (27.0-31.0) pg MCHC 32.3 (32.0-36.0) g/dL RDW 13.6 (12.0-15.0) % Plt Count 103 L (130-450) 10^3/uL MPV 9.8 (7.4-11.4) fL Neut # 4.3 (1.5-6.6) 10^3/uL Lymph # 0.5 L (1.5-3.5) 10^3/uL [place] # 0.0 (0.0-1.0) 10^3/uL Eos # 0.0 (0.0-0.7) 10^3/uL Baso # 0.1 (0.0-0.1) 10^3/uL Absolute Nucleated RBC 0.00 x10^3/uL Nucleated RBC % 0.0 /100WBC Sodium 135 (135-145) mmol/L Potassium 5.7 H (3.5-5.0) mmol/L Chloride 105 (101-111) mmol/L Carbon Dioxide 22 (21-32) mmol/L Anion Gap 8.0 (6-13) BUN 42 H (6-20) mg/dL Creatinine 1.6 H (0.6-1.2) mg/dL Estimated GFR (MDRD) 44 L (>89) Glucose 247 H (70-100) mg/dL POC Whole Bld Glucose 211 H (70 - 100) mg/dL Calcium 8.1 L (8.5-10.3) mg/dL Magnesium 1.4 L (1.7-2.8) mg/dL Total Bilirubin 0.9 (0.2-1.0) mg/dL AST 20 (10-42) IU/L ALT 19 (10-60) IU/L Alkaline Phosphatase 45 (42-121) IU/L B-Natriuretic Peptide (5-100) pg/mL Total Protein 5.9 L (6.7-8.2) g/dL Albumin 3.4 (3.2-5.5) g/dL Globulin 2.5 (2.1-4.2) g/dL Albumin/Globulin Ratio 1.4 (1.0-2.2) 11/28/17 11/28/17 Range/Units 20:31 16:00 WBC (4.8-10.8) x10^3/uL RBC (4.70-6.10) 10^6/uL Hgb (14.0-18.0) g/dL Hct (42.0-52.0) % MCV (80.0-94.0) fL MCH (27.0-31.0) pg MCHC (32.0-36.0) g/dL RDW (12.0-15.0) % Plt Count (130-450) 10^3/uL MPV (7.4-11.4) fL Neut # (1.5-6.6) 10^3/uL Lymph # (1.5-3.5) 10^3/uL [place] # (0.0-1.0) 10^3/uL Eos # (0.0-0.7) 10^3/uL Baso # (0.0-0.1) 10^3/uL Absolute Nucleated RBC x10^3/uL Nucleated RBC % /100WBC Sodium (135-145) mmol/L Potassium (3.5-5.0) mmol/L Chloride (101-111) mmol/L Carbon Dioxide (21-32) mmol/L Anion Gap (6-13) BUN (6-20) mg/dL Creatinine (0.6-1.2) mg/dL Estimated GFR (MDRD) (>89) Glucose (70-100) mg/dL POC Whole Bld Glucose 125 H 255 H (70 - 100) mg/dL Calcium (8.5-10.3) mg/dL Magnesium (1.7-2.8) mg/dL Total Bilirubin (0.2-1.0) mg/dL AST (10-42) IU/L ALT (10-60) IU/L Alkaline Phosphatase (42-121) IU/L B-Natriuretic Peptide (5-100) pg/mL Total Protein (6.7-8.2) g/dL Albumin (3.2-5.5) g/dL Globulin (2.1-4.2) g/dL Albumin/Globulin Ratio (1.0-2.2) - Diagnostic Imaging Diagnostic Imaging Results: positive: Final report reviewed Assessment/Plan - Problem List (1) Pneumonia Impression: Bilateral infiltrates are noted on admission chest x-ray. Patient displays increased breathing efforts, requires oxygen and is wheezy on exam. Patient had an elevated temp, with a temp max of 39.1. Temps have been steadily decreasing and today is afebrile. Patient would do well with one more day of IV antibiotics and may be able to be discharged as early as tomorrow, 11/30/17. Patient has only required a few xopenex nebulizers since admission. Plan: Treat with IV antibiotics, and IV steroids (which were decreased today, due to complaints of hyperglycemia). We will continue to monitor vital signs and labs. Qualifiers: Pneumonia type: due to unspecified organism Laterality: bilateral Lung location: lower lobe of lung Qualified Code(s): J18.9 - Pneumonia, unspecified organism (2) Renal transplant recipient Impression: Patient is post op renal transplant and is followed by a tree tapping laborer out patient. He remains with impaired kidney function. His baseline creatinine is 1.3, with a creatinine max of 1.6. Today, patient's K+ was mildly elevated at 5.7. No indication for further treatment and he will remain on a daily dose of IV furosemide. Plan: Avoid nephrotoxins, limit the use of diuretics and continue anti- rejection medications. Monitor out put, labs and vital signs. (3) Status post coronary artery bypass graft Impression: Patient is seen by a car repossessor out patient. He follows up on a yearly basis. Due to his episode of tachycardia and acute pneumonia an echocardiogram was ordered. Preliminary results show an LV EF of 50-55%, Pseudonormal LV filling pattern consistent with Grade II diastolic dysfunction. False chordae tendineae noted in the LV. There were regional wall motion abnormalities as diagrammed. Basal and mid septal wall segment is akinetic. Moderate to severe right atrial enlargement. Moderately abnormal right heart pressures. The RVSP at rest is 62mmHg (normal being ~25mmHg). The high right sided heart pressures may be worse than normal due to acute pneumonia. Patient's daughter was instructed to follow up with her car repossessor sooner than his regular yearly check up that is in about 6 months. Plan: Continue home medications and monitor on telemetry. (4) Diabetes mellitus type 2, insulin dependent Impression: Patient has a history of long standing DM, and is known to be insulin resistant. He needs increased doses of insulin. Early AM blood sugar remains elevated and was 211 today. Plan: Continue insulin as close to his home schedule as possible and continue SSI, Lantus and blood sugar checks. HgA1C was ordered for tomorrow's labs.
[2017-11-29] MEDS: ALLOPURINOL 100 MG TABLET PO SCH (20:20)
[2017-11-29] MEDS: TAMSULOSIN 0.4 MG CAPSULE PO SCH (20:20)
[2017-11-29] MEDS: cefTRIAXone 1 GM in SODIUM CHLORIDE 0.9% MINIBAG 100 ML IV SCH (20:29)
[2017-11-29] MEDS: INSULIN GLARGINE 300 UNIT/3 ML PEN SUBQ SCH (20:50)
[2017-11-30 06:09] LABS: HGB - HEMOGLOBIN 11.7 g/dL (14.0-18.0); LYMPHOCYTES # (AUTO) 0.6 10^3/uL (1.5-3.5); LYMPHOCYTES % (AUTO) 6.8 %; MEAN CORPUSCULAR HEMOGLOBIN 32.8 pg (27.0-31.0); MEAN CORPUSCULAR HGB CONC 32.8 g/dL (32.0-36.0); MEAN CORPUSCULAR VOLUME 100.1 fL (80.0-94.0); MEAN PLATELET VOLUME 9.8 fL (7.4-11.4); MONOCYTES # (AUTO) 0.3 10^3/uL (0.0-1.0); MONOCYTES % (AUTO) 3.6 %; NEUTROPHILS # (AUTO) 8.3 10^3/uL (1.5-6.6); NEUTROPHILS % (AUTO) 89.6 %; PLT - PLATELET COUNT 108 10^3/uL (130-450); RED BLOOD COUNT 3.56 10^6/uL (4.70-6.10); RED CELL DISTRIBUTION WIDTH 13.7 % (12.0-15.0); WHITE BLOOD COUNT 9.3 x10^3/uL (4.8-10.8)
[2017-11-30 06:10] LABS: ALBUMIN 3.5 g/dL (3.2-5.5); ALBUMIN/GLOBULIN RATIO 1.5 (1.0-2.2); BILIRUBIN,TOTAL 0.6 mg/dL (0.2-1.0); CALCIUM 8.7 mg/dL (8.5-10.3); CREATININE 1.6 mg/dL (0.6-1.2); MAGNESIUM 1.9 mg/dL (1.7-2.8); TOTAL PROTEIN 5.9 g/dL (6.7-8.2)
[2017-11-30 06:13] LABS: HB2 TOTAL 12.4 g/dL; HEMOGLOBIN A1C 0.66 g/dL
[2017-11-30] MEDS: AZITHROMYCIN INJ 500 MG in SODIUM CHLORIDE 0.9% 250 ML IV SCH (06:24)
[2017-11-30] MEDS: SODIUM CHLORIDE FLUSH 0.9% 10 ML SYRINGE IVP SCH (06:25)
--- NOTE | 2017-11-30 07:16 | DISCHARGE SUMMARY ---
Discharge Summary Admit Date: 11/27/17 Discharge Date: 11/30/17 Discharging Provider: JEREMIAH Luis Primary Care Provider: Marta Ward Code Status: Attempt Resuscitation Condition at Discharge: Good Discharge Disposition: 01 Home, Self Care - DIAGNOSES Admission Diagnoses: Pneumonia, unspecified organism (J18.9) Kidney transplant status (Z94.0) Presence of aortocoronary bypass graft (Z95.1) Essential (primary) hypertension (I10) Type 2 diabetes mellitus without complications (E11.9) Discharge Diagnoses with Status of Each Condition: Community acquired pneumonia (J18.9) ongoing, treatment to continue out patient. S/P kidney transplant (Z94.0) chronic, continue anti-rejection medications. S/P CABG (coronary artery bypass graft) (Z95.1) chronic, medical management as per Dr Tilley with [facility]. DM (diabetes mellitus) (E11.9) chronic, elevated blood sugars and adjustments were made. Care to continue at home. - HPI History of Present Illness: Dane Landin is a 67-year old [place] male with a past medical history of diabetes mellitus type 2-insulin dependent, hypertension, CABG, CHF, renal transplant ~6 years ago, and hyperlipidemia. The patient developed a cough yesterday and then today continued with the cough and felt unwell. He soon developed a fever, worsening shortness of breath, so came to the ED. Once in the ED, he received nebulizer treatments for the dyspnea. A chest x-ray shows probable pneumonia. He will be admitted to the hospitalist service for further management of symptoms, and IV antibiotics. Daughter and are at the bedside for all of the admission process, the duration of the stay. - HOSPITAL COURSE Hospital Course: The following problems/diagnoses were prevalent during this hospital stay: (1) Pneumonia- Bilateral infiltrates are noted on admission chest x-ray. Patient displays increased breathing efforts, requires oxygen and is wheezy on exam. Patient had an elevated temp, with a temp max of 39.1. Temps have been steadily decreasing and has been afebrile for the duration of his stay. Patient was prescribed IV antibiotics, and IV steroids. Patient has only required a few xopenex nebulizers since admission. Patient had continuous monitoring of vital signs and labs. (2) Renal transplant recipient- Patient is post op renal transplant and is followed by a beehive kiln charcoal burner out patient. He remains with impaired kidney function. His baseline creatinine is 1.3, with a creatinine max of 1.6. Today , patient's K+ was mildly elevated at 5.7. No indication for further treatment and he will remain on a daily dose of IV furosemide. Nephrotoxins were avoided , limited use of diuretics and continuation of anti-rejection medications during the patient's stay. (3) Status post coronary artery bypass graft- Patient is seen by a real estate office manager out patient. He follows up on a yearly basis. Due to his episode of tachycardia and acute pneumonia an echocardiogram was ordered. Preliminary results show an LV EF of 50-55%, Pseudonormal LV filling pattern consistent with Grade II diastolic dysfunction. False chordae tendineae noted in the LV. There were regional wall motion abnormalities as diagrammed. Basal and mid septal wall segment is akinetic. Moderate to severe right atrial enlargement. Moderately abnormal right heart pressures. The RVSP at rest is 62mmHg (normal being ~25mmHg). The high right sided heart pressures may be worse than normal due to acute pneumonia. Patient's daughter was instructed to follow up with her real estate office manager sooner than his regular yearly check up that is in about 6 months. Patient's home medications were continued and patient was monitored on telemetry. (4) Diabetes mellitus type 2, insulin dependent- Patient has a history of long standing DM, and is known to be insulin resistant. He needs increased doses of insulin. Early AM blood sugar remains elevated and was 196 on the morning of discharge. Patient was continues on insulin as close to his home schedule as possible with SSI, Lantus and blood sugar checks. HgA1C was elevated at 7.0. Disposition: Patient resumed home routine and there have been no changes to any home medications. Patient was transported home without the need of oxygen in stable condition via family in a private car. Prescriptions were sent to pharmacy of choice to continue treatment of pneumonia. - ALLERGIES Allergies/Adverse Reactions: Allergies Allergy/AdvReac Type Severity Reaction Status Date / Time ibuprofen AdvReac Unknown Verified 11/27/17 22:56 - MEDICATIONS Home Medications: Ambulatory Orders Medication Instructions Recorded Confirmed Allopurinol 150 mg PO QPM 11/28/17 11/28/17 Aspirin EC [Ecotrin] 325 mg PO DAILY 11/28/17 11/28/17 Carvedilol [Coreg] 6.25 mg PO BID 11/28/17 11/28/17 Cinacalcet HCl [Sensipar] 30 mg PO Q2D@1200 11/28/17 11/28/17 Clopidogrel [Plavix] 75 mg PO DAILY 11/28/17 11/28/17 Folic Acid 1 mg PO DAILY 11/28/17 11/28/17 Gabapentin 300 mg PO BID 11/28/17 11/28/17 Insulin Aspart [NovoLOG] 0 - 15 units SUBQ TIDWM PRN 11/28/17 11/28/17 Insulin Glargine [Lantus Solostar] 20 unit SUBQ QPM 11/28/17 11/28/17 Lisinopril/Hydrochlorothiazide 0.5 tab PO DAILY 11/28/17 11/28/17 [Lisinopril-Hctz 10-12.5 mg Tab] Magnesium Oxide [Magnesium] 800 mg PO 1200,1700 11/28/17 11/28/17 Mycophenolate Sodium [Mycophenolic 180 mg PO BID 11/28/17 11/28/17 Acid] Pravastatin [Pravachol] 40 mg PO DAILY 11/28/17 11/28/17 PredniSONE [PredniSONE INTENSOL] 5 mg PO DAILY 11/28/17 11/28/17 Tacrolimus 1 mg PO BID 11/28/17 11/28/17 Tamsulosin [Flomax] 0.4 cap PO QPM 11/28/17 11/28/17 raNITIdine [Zantac] 300 mg PO QPM 11/28/17 11/28/17 Benzonatate [Tessalon Perle] 100 mg PO Q4H PRN #30 capsule 11/30/17 Moxifloxacin HCl [Avelox] 400 mg PO DAILY 10 Days #10 tablet 11/30/17 Prednisone 10 mg PO DAILY 3 Days #6 tab.ds.pk 11/30/17 Saccharomyces Boulardii [Florastor] 250 mg PO BID 20 Days #40 capsule 11/30/17 - PHYSICAL EXAM AT DISCHARGE General Appearance: positive: No acute distress, Alert Eyes Bilateral: positive: Normal inspection, PERRL ENT: positive: ENT inspection nml, Pharynx nml, No signs of dehydration Neck: positive: Nml inspection, Thyroid nml, No JVD, Stiff neck Respiratory: positive: Chest non-tender, No respiratory distress, Other (a few crackles in left low base.) Cardiovascular: positive: No gallop, Irregularly irregular, Systolic murmur, Decreased pulse(s) Peripheral Pulses: positive: 1+ Abdomen: positive: Non-tender, No organomegaly, Nml bowel sounds, No distention , Other (rounded, soft.) Back: positive: Nml inspection Skin: positive: No rash, Warm, Dry Extremities: positive: Non-tender, Full ROM, Nml appearance, Pedal edema ( chronic) Neurologic/Psychiatric: positive: Oriented x3, CN's nml (2-12), Motor nml, Sensation nml, Weakness, Depressed mood/affect Reflexes: Bicep (R): 2+, Bicep (L): 2+ - LABS Result Diagrams: 11/30/17 05:30 11/30/17 05:30 - DIAGNOSTIC IMAGING Diagnostic Imaging Results: Final report reviewed Diagnostic Imaging Results Comments: EXAM: CHEST RADIOGRAPHY EXAM DATE: 11/27/2017 11:39 PM. CLINICAL HISTORY: Cough, congestion, fever. COMPARISON: CT and chest x-ray 08/07/2017. TECHNIQUE: 1 view. FINDINGS: Lungs/Pleura: Vascular congestion. Diffuse minimal interstitial opacities. Left lung pleural parenchymal scarring present. No large effusion. No gross pneumothorax. Mediastinum: Mild cardiomegaly. No mediastinal shift. Other: Post CABG. IMPRESSION: Mild CHF. Concomitant pneumonia difficult to exclude given history. ECHO CARDIOGRAM: 11/29/17: No comparisons were available. Preliminary results reveal overall LV systolic function is lower limits of normal with an ejection fraction of 50-55%. Pseudonormal LV filling pattern consistent with Grade II diastolic dysfunction. False chordae tendineae noted in the LV. There are regional wall motion abnormalities as diagrammed. Basal and mid septal wall segment is akinetic. The RV is normal in size and function. Mild increase in the LA volume index. Moderate to severe RA enlargement. No aortic stenosis, or regurgitation. The tricuspid valve appears structurally normal, mild regurgitation. Moderately abnormal right heart pressures. The RVSP at rest is 62mmHg. No pericardial effusion, inferior vena cava is normal, no pleural effusion. - FOLLOW UP Follow Up: Disposition: 01 Home, Self Care Condition: Good Prescriptions: Benzonatate [Tessalon Perle] 100 mg PO Q4H PRN #30 capsule PRN Reason: Cough Moxifloxacin HCl [Avelox] 400 mg PO DAILY 10 Days #10 tablet Prednisone 10 mg PO DAILY 3 Days #6 tab.ds.pk Saccharomyces Boulardii [Florastor] 250 mg PO BID 20 Days #40 capsule Diet: Diabetic Activity Restrictions: No Restrictions Shower Restrictions: No Driving Restrictions: No Weight Bearing: Full Weight Additional Instructions or Follow Up instructions: You were treated for pneumonia with IV antibiotics that are switching to oral antibiotics for an additional 10 days. An echocardiogram was obtained that showed increased right heart pressures, this may be a consequence of the pneumonia. Your kidney function was closely monitored and precautions were in place to ensure nephrotoxins were avoided. A copy of your discharge summary will be forwarded to your PCP, and real estate office manager. You should follow up early next week with your PCP to ensure improvement. - TIME SPENT Time Spent in Discharge (Minutes): 45
[2017-11-30 07:25] VITALS: BP 111/58
[2017-11-30] MEDS: INSULIN ASPART 300 UNIT/3 ML PEN SUBQ SCH ×2 (08:21→08:22)
[2017-11-30] MEDS: CLOPIDOGREL 75 MG TABLET PO SCH (08:23)
[2017-11-30] MEDS: GABAPENTIN 300 MG CAPSULE PO SCH (08:23)
[2017-11-30] MEDS: TACROLIMUS 0.5 MG CAPSULE PO SCH (08:23)
[2017-11-30] MEDS: CARVEDILOL 3.125 MG TABLET PO SCH (08:23)
[2017-11-30] MEDS: FOLIC ACID 1 MG TABLET PO SCH (08:23)
[2017-11-30] MEDS: ASPIRIN EC 325 MG TABLET PO SCH (08:24)
[2017-11-30] MEDS: PRAVASTATIN 40 MG TABLET PO SCH (08:24)
[2017-11-30] MEDS: [UNRECOGNIZED DRUG - OTHER] PO SCH (08:25)
[2017-11-30] MEDS: ENOXAPARIN 40 MG/0.4 ML SYRINGE SUBQ SCH (08:26)
[2017-11-30] MEDS: POLYETHYLENE GLYCOL 3350 17 GM PACKET PO SCH (08:27)
[2017-11-30] MEDS: SODIUM CHLORIDE FLUSH 0.9% 10 ML SYRINGE IVP PRN (08:28)
[2017-11-30] MEDS ORDERED: methylPREDNISolone SUCCINATE 40 MG/ML VIAL IVP SCH (09:00)
[2017-12-01] MEDS ORDERED: AZITHROMYCIN INJ 500 MG in SODIUM CHLORIDE 0.9% 250 ML IV SCH (09:00)
== END 2017-11-30 11:05 | disposition home or self-care (01) | DRG 194 ==
LOC: ED 22:45 → MS2 11-28 01:24
PROVIDERS: ADMIT Internal Medicine; ATTEND Nurse Practitioner
DX: J18.9 Pneumonia, unspecified organism (principal); Z94.0 Kidney transplant status; Z95.1 Presence of aortocoronary bypass graft; I25.10 Atherosclerotic heart disease of native coronary artery without angina pectoris; Z95.5 Presence of coronary angioplasty implant and graft; I11.0 Hypertensive heart disease with heart failure; I50.9 Heart failure, unspecified; E78.5 Hyperlipidemia, unspecified; E11.65 Type 2 diabetes mellitus with hyperglycemia; Z79.4 Long term (current) use of insulin
CPT/HCPCS: 36415; 71045; 80048; 80053; 81001; 83036; 83605; 83690; 83735; 83880; 84484; 85025; 87040; 87070; 87086; 87205; 87275; 87276; 93005; 93306; 94640; 96365; 99285

== ENCOUNTER 2017-12-13 11:51 | Outpatient (CLI) | payer MEDICARE, OTHER ==
[2017-12-13 19:24] LABS: CALCIUM 8.4 mg/dL (8.5-10.3); CREATININE 1.4 mg/dL (0.6-1.2)
== END 2017-12-13 11:52 | disposition home or self-care (01) ==
LOC: LAB.WCP 11:51
PROVIDERS: ATTEND Family Medicine
DX: I10 Essential (primary) hypertension (principal)
CPT/HCPCS: 36415; 80048

== ENCOUNTER 2018-08-26 11:12 | Outpatient (CLI) | payer MEDICARE, OTHER ==
[2018-08-26 18:59] LABS: HB2 TOTAL 13.3 g/dL; HEMOGLOBIN A1C 0.68 g/dL; HEMOGLOBIN A1C % 6.8 % (4.6-6.2)
== END 2018-08-26 23:59 | disposition home or self-care (01) ==
LOC: LAB.WCP 11:12
PROVIDERS: ATTEND Family Medicine
DX: E11.9 Type 2 diabetes mellitus without complications (principal)
CPT/HCPCS: 36415; 83036

== ENCOUNTER 2018-12-16 11:11 | Outpatient (CLI) | payer MEDICARE, OTHER | END 2018-12-16 11:12 | disposition home or self-care (01) | LOC: SC 11:11 | PROVIDERS: ATTEND Internal Medicine Pulmonary Disease | DX: R06.81 Apnea, not elsewhere classified (principal); G47.10 Hypersomnia, unspecified; R41.89 Other symptoms and signs involving cognitive functions and awareness; G47.8 Other sleep disorders; R06.83 Snoring | CPT/HCPCS: 99203; G0463; 99212 ==

== ENCOUNTER 2018-12-24 20:25 | Outpatient (CLI) | payer MEDICARE, OTHER | END 2018-12-24 20:26 | disposition home or self-care (01) | LOC: SC 20:25 | PROVIDERS: ATTEND Internal Medicine Pulmonary Disease | DX: G47.33 Obstructive sleep apnea (adult) (pediatric) (principal) | CPT/HCPCS: 95810 ==

== ENCOUNTER 2019-01-07 10:05 | Outpatient (CLI) | payer MEDICARE, OTHER | END 2019-01-07 10:06 | disposition home or self-care (01) | LOC: SC 10:05 | PROVIDERS: ATTEND Nurse Practitioner Family | DX: G47.33 Obstructive sleep apnea (adult) (pediatric) (principal) | CPT/HCPCS: 99214; G0463; 99212 ==

== ENCOUNTER 2019-02-17 08:55 | Outpatient (CLI) | payer MEDICARE, OTHER ==
[2019-02-17 13:26] LABS: ALBUMIN 3.9 g/dL (3.2-5.5); ALBUMIN/GLOBULIN RATIO 1.4 (1.0-2.2); ALKALINE PHOSPHATASE 52 IU/L (42-121); ALT ALANINE AMINOTRANSFERASE 16 IU/L (10-60); AST ASPARTATE AMINOTRANSFERASE 23 IU/L (10-42); BILIRUBIN,TOTAL 0.6 mg/dL (0.2-1.0); BUN - BLOOD UREA NITROGEN 38 mg/dL (6-20); CALCIUM 10.1 mg/dL (8.5-10.3); CARBON DIOXIDE - CO2 20 mmol/L (21-32); CHLORIDE 111 mmol/L (101-111); CHOLESTEROL 124 mg/dL; CREATININE 1.3 mg/dL (0.6-1.2); GFR - MDRD 55 (>89); GLUCOSE 118 mg/dL (70-100); HDL CHOLESTEROL 41 mg/dL; LDL CHOLESTEROL,CALCULATED 60 mg/dL; LDL/HDL RATIO 1.5 (<3.6); SODIUM 141 mmol/L (135-145); TOTAL PROTEIN 6.6 g/dL (6.7-8.2); VLDL CHOLESTEROL 23 mg/dL
[2019-02-17 14:31] LABS: HB2 TOTAL 13.5 g/dL; HEMOGLOBIN A1C 0.68 g/dL; HEMOGLOBIN A1C % 6.8 % (4.6-6.2)
== END 2019-02-17 08:56 | disposition home or self-care (01) ==
LOC: LAB.WCP 08:55
PROVIDERS: ATTEND Family Medicine
DX: E11.9 Type 2 diabetes mellitus without complications (principal); E03.9 Hypothyroidism, unspecified
CPT/HCPCS: 36415; 80053; 80061; 83036; 83721; 84443

== ENCOUNTER 2019-04-24 08:40 | Outpatient (CLI) | payer MEDICARE, OTHER | END 2019-04-24 08:41 | disposition home or self-care (01) | LOC: SC 08:40 | PROVIDERS: ATTEND Nurse Practitioner Family | DX: G47.33 Obstructive sleep apnea (adult) (pediatric) (principal) | CPT/HCPCS: 99214; G0463; 99212 ==

== ENCOUNTER 2019-07-28 08:17 | Outpatient (CLI) | payer MEDICARE, OTHER ==
--- NOTE | 2019-07-28 09:09 | SLEEP CARE CONSULTATION ---
Information from patient questionnaire entered by Avelina Marquez. I have reviewed and concur with the information entered by Avelina Marquez. This document represents the service I personally performed and the decisions made by me, Radha Alexander, RN, MSN, COMMUNITY ORGANIZER. History of Present Illness Previous diagnosis: Very Severe, Obstructive Sleep Apnea-Hypopnea Syndrome AHI: 61.0 Reason for CPAP/BiPAP follow up: three month Accompanied by: keely Vale Equipment type: CPAP Equipment obtained from: [employer] Mask style: Nasal Mask brand: Respironics Backup mask available: No Last cushion change: 2 weeks ago HPI additional information: Nasal congestion was reduced with increase in humidity. He asked about bloating noted on our questionaire. Clarified he has felt bloated for months before CPAP and seems a little more the last few. Then added no he has felt bloated for years. He does not wake up with abdominal distention with need to burp or worse in the morning after using CPAP. CPAP Compliance Data - Data Reviewed with Patient Average duration of nightly device use: 7.4 Compliance rate %: 91.1 (90 days) Current pressure setting (cmH2O): 8-12 Humidity settin Heated hose settin Average residual AHI: 3.9 Average large leak: 1 min 39 secs Subjective Missed days of use due to: reports: illness (nasal congestion from cold. ) Patient concerns: reports: other (is there a smaller mask available. ). denies: aerophagia, mask discomfort, air blowing in eyes, mask leak noise, condensation in mask/hose, nasal congestion, dry mouth, nose, throat, epistaxis Observed to snore while using device: No Current pressure setting perceived as: comfortable On therapy, patient: reports: sleeping better, awakening more refreshed, being more awake and alert during the day, more rested overall (naps have been reduced from hours to about 30 -45 minutes - but does use CPAP. ). denies: drowsiness while driving Initial [place] Sleepiness Scale score: 15 Current [place] Sleepiness Scale score: 7 Allergies and Home Medications Known drug allergies: Yes (ibuprofen) Home medication list reviewed: Yes (hold on zantac until speaks with doctor ) Allergy and home medication list: Medication Name (generic/name brand) Strength & Dosage Novolog 100 unit/ml S Solution Inject 8 bfast, 12 lunch, 13 dinner then SS Lantus Solostar 100 unit/ml SQ Solution Inject 20 units at bedtime Prograf (Tacrolimus) 1mg cap one am and pm Myfortic (Mycophenolate Sodium) 180mg tab one twice daily Coreg (Carvedilol) 6.25mg tab one twice daily Gabapentin 300mg cap two daily at bedtime Plavix (Clopidogrel Bisulfate) 75mg tab one daily Tamsulosin HCL 0.4mg cap one daily at bedtime Pravachol (Pravastatin Sodium) 40mg tab one daily Allopurinol 300mg tab daily Lisinopril-Hydrochlorothiazide 10-12.5mg tab daily Prednisone 5mg tab one daily Aspirin 81mg tab one daily Ranitidine HCL 150mg tab two every night Vitamin D 50,000unit cap one every 2 weeks Folic Acid 1mg tab one daily Magnesium Oxide 400mg tab two twice daily multivitamin daily Allergy List Ibuprofen Review of Systems Review of systems same as previous: Yes ( cold only) Physical Exam Blood Pressure: 154/68 (just took blood pressure medication. monitors at home and 130-140 /70 range) Cuff size: regular Heart Rate: 62 O2 Saturation: 96 Height: 5 ft 2.5 in Weight: 167 lb 12.8 oz Body Mass Index: 30.2 BMI Classification: Obesity Class 1 Impression and Plan 1. Obstructive Sleep Apnea-Hypopnea Syndrome, very severe, with good treatment compliance and good apnea control. On CPAP therapy, the patient has better sleep quality and is more rested overall. For his mask concerns, I showed him other styles and he decided to stay with what he has. For nasal congestion with cold, he is to try saline nasal spray prior to CPAP to clear nasal secretions to assist him use CPAP. He already has a steamy shower at night to facilitate nasal drainage. He is advised to use his CPAP with all naps with rationale explained and to limit to one hour and before 3 pm so not to affect night time sleep. For questions about supplies, I gave them a simplified list according to time intervals of what can be replaced if needed. He has lost weight but still with BMI of class 1 obesity that increases apnea risk and overall health risks. I explained how if continued significant weight loss will reduce his apnea risk and CPAP pressure requirements. Current autoCPAP pressure will accomodate for some weight loss. Symptoms to report for further pressure adjustment discussed. Patient's apnea severity and rationale for treatment to reduce apnea, improve sleep quality and reduce cardiovascular and cerebrovascular events was reviewed. I also reviewed the benefit of consistent device use of CPAP for hypertension, cardiac disease, diabetes, . 2. Abdominal distention, present for years, but progressively worse the last few months. No increase with food or CPAP. Patient advised to follow up with PCP for further evaluation. * Continue CPAP pressure at cmH2O * Implement measures to reduce nasal congestion. * Notify me if snoring with mask or feeling that the pressure is too much or too little * Continue to lose weight * Follow up with PCP for further evaluation of abdominal bloating. * Return for follow up in 6 months, or sooner if concerns arise I spent 100% of this 30 minute visit face to face with the patient with greater than 50% of this was spent time counseling the patient and coordination of care.
[2019-07-28 09:10] VITALS: BP 154/68
== END 2019-07-28 08:18 | disposition home or self-care (01) ==
LOC: SC 08:17
PROVIDERS: ATTEND Nurse Practitioner Family
DX: G47.33 Obstructive sleep apnea (adult) (pediatric) (principal); R14.0 Abdominal distension (gaseous); E66.9 Obesity, unspecified; Z68.30 Body mass index [BMI] 30.0-30.9, adult
CPT/HCPCS: 99214; G0463; 99212

== ENCOUNTER 2019-08-20 07:44 | Outpatient (CLI) | payer MEDICARE, OTHER ==
[2019-08-20 12:44] LABS: CALCIUM 8.2 mg/dL (8.5-10.3); CREATININE 1.4 mg/dL (0.6-1.2)
[2019-08-20 12:58] LABS: HB2 TOTAL 12.7 g/dL; HEMOGLOBIN A1C 0.68 g/dL
[2019-08-20 13:00] LABS: CREATININE,URINE 106.9 mg/dL; MICROALBUMIN,URINE 6.2 mg/dL (0-300.0)
== END 2019-08-20 23:59 | disposition home or self-care (01) ==
LOC: LAB.WCP 07:44
PROVIDERS: ATTEND Family Medicine
DX: E11.9 Type 2 diabetes mellitus without complications (principal)
CPT/HCPCS: 36415; 80048; 82043; 82570; 83036

== ENCOUNTER 2020-02-02 17:04 | Outpatient (CLI) | payer MEDICARE, OTHER ==
--- NOTE | 2020-02-02 16:28 | SLEEP CARE CONSULTATION ---
Information from patient questionnaire entered by Yolis Wharton. I have reviewed and concur with the information entered by Yolis Wharton. This document represents the service I personally performed and the decisions made by me, Radha Alexander, RN, MSN, ESTATE TAX EXAMINER. History of Present Illness Service Date and Time: 02/02/2020 1704 Previous diagnosis: Very Severe, Obstructive Sleep Apnea-Hypopnea Syndrome AHI: 61.0 Reason for follow up: six month Equipment type: CPAP Equipment obtained from: [employer] Mask style: Nasal Backup mask available: Yes Last cushion change: last week CPAP Compliance Data - Data Reviewed with Patient Average duration of nightly device use: 5h 40m Compliance rate %: 84.4 Current pressure setting (cmH2O): 8-12 Humidity settin Heated hose settin Average residual AHI: 4.8 Average large leak: 3m 10s Subjective Patient concerns: reports: mask discomfort (only when over tighten ). denies: aerophagia, air blowing in eyes, mask leak noise, condensation in mask/hose, nasal congestion, dry mouth, nose, throat, epistaxis, other Observed to snore while using device: No Current pressure setting perceived as: comfortable On therapy, patient: reports: sleeping better, more rested overall. denies: drowsiness while driving Initial [place] Sleepiness Scale score: 15 Allergies and Home Medications Home medication list reviewed: No (no changes) Review of Systems Review of systems same as previous: Yes Physical Exam Height: 5 ft 2.5 in Impression and Plan 1. Obstructive Sleep Apnea-Hypopnea Syndrome, very severe, with good treatment compliance and good apnea control. On CPAP therapy, the patient has better sleep quality and is more rested overall. He is getting his supplies as needed from his DME. However, patient is only averagiing 5 hours and 40minutes a night. I explained that most people require 7-9 hours of sleep. Less than 5-6 hours of sleep can increase health risks such as cardiac disease and diabetes. Patient advised to strive for more sleep. Patient agreed with plan. Patient's apnea severity and rationale for treatment to reduce apnea, improve sleep quality and reduce hypertension, cardiovascular and cerebrovascular events was reviewed. * Continue CPAP pressure at 8-12 cmH2O * Obtain more sleep. * Notify me if snoring with mask or feeling that the pressure is too much or too little. * Call this office if any problems using CPAP * Return for follow up in 1 year, or sooner if concerns arise Visit Type: Telehealth Phone (to minimize the risk of Covid 19 risk, the patient agreed to this visit and billing his insurnace) Patient Location: Home Other Participants: Child (adult daughter) Location of Provider: Home Patient agrees and consents to this telehealth visit type: Yes Time Spent with Patient (minutes): 10 Provider Statement: I spent 100% of the Telehealth Phone Call with the patient with greater than 50% spent counseling the patient and coordination of care.
== END 2020-02-02 17:05 | disposition home or self-care (01) ==
LOC: SC 17:04
PROVIDERS: ATTEND Nurse Practitioner Family
DX: G47.33 Obstructive sleep apnea (adult) (pediatric) (principal)

== ENCOUNTER → 2020-03-22 | Outpatient (CLI) | payer MEDICARE, OTHER ==
[2020-03-22 12:09] LABS: BASOPHILS % (AUTO) 0.8 %; EOSINOPHILS # (AUTO) 0.1 10^3/uL (0.0-0.7); EOSINOPHILS % (AUTO) 2.8 %; HGB - HEMOGLOBIN 13.5 g/dL (14.0-18.0); LYMPHOCYTES # (AUTO) 1.1 10^3/uL (1.5-3.5); LYMPHOCYTES % (AUTO) 22.1 %; MEAN CORPUSCULAR HEMOGLOBIN 33.3 pg (27.0-31.0); MEAN CORPUSCULAR HGB CONC 33.4 g/dL (32.0-36.0); MEAN CORPUSCULAR VOLUME 99.5 fL (80.0-94.0); MONOCYTES # (AUTO) 0.5 10^3/uL (0.0-1.0); MONOCYTES % (AUTO) 9.7 %; NEUTROPHILS # (AUTO) 3.2 10^3/uL (1.5-6.6); PLT - PLATELET COUNT 129 10^3/uL (130-450); RED BLOOD COUNT 4.06 10^6/uL (4.70-6.10); RED CELL DISTRIBUTION WIDTH 13.2 % (12.0-15.0)
[2020-03-22 12:30] LABS: ALBUMIN 4.2 g/dL (3.2-5.5); ALBUMIN/GLOBULIN RATIO 1.6 (1.0-2.2); ALKALINE PHOSPHATASE 57 IU/L (42-121); ALT ALANINE AMINOTRANSFERASE 19 IU/L (10-60); AST ASPARTATE AMINOTRANSFERASE 23 IU/L (10-42); BILIRUBIN,TOTAL 1.8 mg/dL (0.2-1.0); BUN - BLOOD UREA NITROGEN 24 mg/dL (6-20); CALCIUM 8.9 mg/dL (8.5-10.3); CARBON DIOXIDE - CO2 25 mmol/L (21-32); CHLORIDE 97 mmol/L (101-111); CHOL/HDL RATIO 2.5 (<5.0); CHOLESTEROL 140 mg/dL; CREATININE 1.2 mg/dL (0.6-1.2); GLUCOSE 138 mg/dL (70-100); HDL CHOLESTEROL 55 mg/dL; LDL CHOLESTEROL,CALCULATED 66 mg/dL; LDL/HDL RATIO 1.2 (<3.6); SODIUM 134 mmol/L (135-145); TOTAL PROTEIN 6.8 g/dL (6.7-8.2); VLDL CHOLESTEROL 19 mg/dL
[2020-03-22 12:44] LABS: HB2 TOTAL 13.5 g/dL; HEMOGLOBIN A1C 0.67 g/dL; HEMOGLOBIN A1C % 6.7 % (4.6-6.2)
== END ==
LOC: LAB.WCP 08:05
PROVIDERS: ATTEND Family Medicine
DX: E03.9 Hypothyroidism, unspecified (principal); E11.22 Type 2 diabetes mellitus with diabetic chronic kidney disease; N18.3 Chronic kidney disease, stage 3 (moderate)
CPT/HCPCS: 36415; 80053; 80061; 83036; 83721; 84443; 85025

== ENCOUNTER 2020-06-23 07:42 | Outpatient (CLI) | payer MEDICARE, OTHER ==
--- NOTE | 2020-06-23 10:08 | XRAY Report ---
PROCEDURE: Ankle 3 View LT INDICATIONS: LEFT ANKLE PAIN TECHNIQUE: 3 views of the ankle were acquired. COMPARISON: None. FINDINGS: Bones: No fractures or dislocations. Ankle mortise is normally aligned. Osteophytic changes are not ed in tibiotalar joint and subtalar joint. Small plantar calcaneal enthesophyte is seen. No suspiciou s bony lesions. Soft tissues: No tibiotalar joint effusion. Achilles tendon appears normal. Mild ankle joint soft tissue swelling is seen. Surgical clips are noted along medial aspect of the distal left lower leg. V ascular calcifications are seen in posterior ankle and foot soft tissue. IMPRESSION: Mild ankle soft tissue swelling. Ankle joint osteoarthritis. No fracture or dislocation. Reviewed by: Jared Mccormick MD on 06/23/2020 10:07 AM PDT Approved by: Jared Mccormick MD on 06/23/2020 10:07 AM PDT Station ID: [id number]
== END 2020-06-23 23:59 | disposition home or self-care (01) ==
LOC: DI.WCP 07:42
PROVIDERS: ATTEND Family Medicine
DX: M19.072 Primary osteoarthritis, left ankle and foot (principal); M79.89 Other specified soft tissue disorders

== ENCOUNTER 2020-07-06 08:21 | Outpatient (CLI) | payer MEDICARE, OTHER ==
--- NOTE | 2020-07-06 15:31 | Ultrasound Report ---
PROCEDURE: Duplex Lwr Ext Arterial LT INDICATIONS: ATHEROSCLEROSIS TECHNIQUE: Color and pulse Doppler interrogation was performed of the left lower extremity arterial system, with image documentation. COMPARISON: none FINDINGS: Common femoral artery: 91 cm/sec, with biphasic flow. Deep femoral artery: 111 cm/sec, with biphasic flow. Proximal superficial femoral artery: 113 cm/sec, with biphasic flow. Mid superficial femoral artery: 114 cm/sec, with biphasic flow. Distal superficial femoral artery: 56 cm/sec, with biphasic flow. Popliteal artery: 58 cm/sec, with biphasic flow. Posterior tibial artery: 58 cm/sec, with monophasic flow. Anterior tibial artery/dorsalis pedis: 63/31 cm/sec, with monophasic flow. Gong-scale imaging description: Moderate to severe calcifications. IMPRESSION: 1. Diffuse athrosclerotic disease with distal monophasic flow. Reviewed by: Frieda Pena MD on 07/06/2020 3:29 PM PDT Approved by: Frieda Pena MD on 07/06/2020 3:29 PM PDT Station ID: [id number]
== END 2020-07-06 08:22 | disposition home or self-care (01) ==
LOC: DI 08:21
PROVIDERS: ATTEND Family Medicine
DX: I70.202 Unspecified atherosclerosis of native arteries of extremities, left leg (principal); M25.572 Pain in left ankle and joints of left foot

== ENCOUNTER 2020-09-17 08:06 | Outpatient (CLI) | payer MEDICARE, OTHER ==
[2020-09-17 12:17] LABS: HEMOGLOBIN A1c% 6.6 % (4.27-6.07)
[2020-09-17 12:43] LABS: BASOPHILS % (AUTO) 0.9 %; EOSINOPHILS # (AUTO) 0.1 10^3/uL (0.0-0.7); LYMPHOCYTES # (AUTO) 0.8 10^3/uL (1.5-3.5); LYMPHOCYTES % (AUTO) 17.6 %; MEAN CORPUSCULAR HEMOGLOBIN 33.1 pg (27.0-31.0); MEAN CORPUSCULAR HGB CONC 31.5 g/dL (32.0-36.0); MEAN PLATELET VOLUME 11.5 fL (7.4-11.4); MONOCYTES # (AUTO) 0.4 10^3/uL (0.0-1.0); NEUTROPHILS # (AUTO) 3.2 10^3/uL (1.5-6.6); NEUTROPHILS % (AUTO) 70.1 %; PLT - PLATELET COUNT 114 10^3/uL (130-450); RED BLOOD COUNT 3.63 10^6/uL (4.70-6.10); RED CELL DISTRIBUTION WIDTH 13.5 % (12.0-15.0); WHITE BLOOD COUNT 4.5 x10^3/uL (4.8-10.8)
[2020-09-17 13:03] LABS: ALBUMIN 4.3 g/dL (3.2-5.5); ALBUMIN/GLOBULIN RATIO 1.8 (1.0-2.2); ALKALINE PHOSPHATASE 67 IU/L (42-121); ALT ALANINE AMINOTRANSFERASE 17 IU/L (10-60); AST ASPARTATE AMINOTRANSFERASE 22 IU/L (10-42); BILIRUBIN,TOTAL 1.8 mg/dL (0.2-1.0); BUN - BLOOD UREA NITROGEN 26 mg/dL (6-20); CALCIUM 9.2 mg/dL (8.5-10.3); CARBON DIOXIDE - CO2 23 mmol/L (21-32); CHLORIDE 101 mmol/L (101-111); CHOL/HDL RATIO 2.4 (<5.0); CHOLESTEROL 120 mg/dL; CREATININE 1.3 mg/dL (0.6-1.2); GLUCOSE 114 mg/dL (70-100); HDL CHOLESTEROL 51 mg/dL; LDL CHOLESTEROL,CALCULATED 50 mg/dL; SODIUM 135 mmol/L (135-145); TOTAL PROTEIN 6.7 g/dL (6.7-8.2); VLDL CHOLESTEROL 19 mg/dL
== END 2020-09-17 23:59 | disposition home or self-care (01) ==
LOC: LAB.WCP 08:06
PROVIDERS: ATTEND Family Medicine
DX: E11.9 Type 2 diabetes mellitus without complications (principal)
CPT/HCPCS: 36415; 80048; 80053; 80061; 83036; 83721; 85025

== ENCOUNTER → 2020-09-20 | Outpatient (CLI) | payer MEDICARE, OTHER ==
[2020-09-20 13:10] LABS: CREATININE,URINE 101.5 mg/dL; MICROALBUM/CREATININE RATIO,UR 24.6 ug/mg (<30.0); MICROALBUMIN,URINE 2.5 mg/dL (0-300.0)
== END ==
LOC: LAB.WCP 08:00
PROVIDERS: ATTEND Family Medicine
DX: E11.9 Type 2 diabetes mellitus without complications (principal)
CPT/HCPCS: 82043; 82570

== ENCOUNTER 2020-10-25 07:21 | Outpatient (CLI) | payer MEDICARE, OTHER ==
[2020-10-25 12:52] LABS: CALCIUM 8.8 mg/dL (8.5-10.3); CREATININE 1.5 mg/dL (0.6-1.2)
== END 2020-10-25 23:59 | disposition home or self-care (01) ==
LOC: LAB.WCP 07:21
PROVIDERS: ATTEND Family Medicine
DX: I10 Essential (primary) hypertension (principal)
CPT/HCPCS: 36415; 80048

== ENCOUNTER 2021-02-01 15:46 | Outpatient (CLI) | payer MEDICARE, OTHER ==
--- NOTE | 2021-02-01 16:03 | SLEEP CARE CONSULTATION ---
Information from patient questionnaire entered by Angelique Arias. I have reviewed and concur with the information entered by Angelique Arias. This document represents the service I personally performed and the decisions made by me, Mila Dang ARNP. History of Present Illness Service Date and Time: 02/01/2021 1546 Previous diagnosis: Very Severe, Obstructive Sleep Apnea-Hypopnea Syndrome AHI: 61.0 Reason for follow up: annual (Last seen 01/2020) Equipment type: CPAP Equipment obtained from: [employer] (getting supplies as needed) Mask style: Nasal Backup mask available: Yes (old mask) Last cushion change: yesterday Year and Where: 2015 [facility] additional information: SUKUMAR SWEENEY was diagnosed to have very severe, AHI 61.0, obstructive sleep apnea-hypopnea syndrome and returns via Telehealth visit today for CPAP therapy annual follow-up. CPAP Compliance Data - Data Reviewed with Patient Average duration of nightly device use: 6 h 11 min Compliance rate %: 91.1 Current pressure setting (cmH2O): 8-12 Humidity settin Heated hose settin Average residual AHI: 4.6 Average large leak: 4 min 46 sec Subjective Missed days of use due to: reports: other (some times when he eats too much, it is uncomfortable) Patient concerns: denies: aerophagia, mask discomfort, air blowing in eyes, mask leak noise, condensation in mask/hose, nasal congestion, dry mouth, nose, throat, epistaxis, other Observed to snore while using device: No Current pressure setting perceived as: too high On therapy, patient: reports: sleeping better, awakening more refreshed, being more awake and alert during the day, more rested overall. denies: drowsiness while driving Initial [place] Sleepiness Scale score: 15 (in 2019) Current [place] Sleepiness Scale score: 10 Allergies and Home Medications Drug allergies reviewed: Yes Home medication list reviewed: Yes (no new meds) Review of Systems Review of systems same as previous: Yes (no changes) Physical Exam Vital signs obtained and entered by: Telehealth visit to reduce exposure during Covid pandemic Height: 5 ft 2.5 in Impression and Plan 1. Obstructive Sleep Apnea-Hypopnea Syndrome, very severe, with good treatment compliance and good apnea control. On CPAP therapy, the patient has better sleep quality and is more rested overall. He feels like the pressure is too much. He would like to reduce the pressure. He is using median pressure 8.9 cmH2O and 90% average 10.3 cmH2O with good apnea control. I will adjust the pressure to 8-10 cmH2O and have him follow up in 1-2 months to evaluate response and see if his pressure is comfortable. He was instructed to call if the pressure change in uncomfortable or he develops aerophagia. He voiced understanding. Patient's apnea severity and rationale for treatment to reduce apnea, improve sleep quality and reduce cardiovascular and cerebrovascular events was reviewed. I also reviewed the benefit of consistent device use of CPAP for hypertension, cardiac disease, and diabetes. * Change auto CPAP pressure to 8-10 cmH2O * Notify me if snoring with mask or feeling that the pressure is too much or too little * Attempt to lose weight * Call this office if any problems using CPAP * Return for follow up in 1-2 months, or sooner if concerns arise Counseling Topics: Spare mask, Weight loss health impact Visit Type: Telehealth Video Video Type: VSee Patient Location: Home Location of Provider: Office Patient agrees and consents to this telehealth visit type: Yes Patient agrees to have their insurance billed: Yes Time Spent with Patient (minutes): 15 Provider Statement: I spent 100% of the Telehealth Video Call with the patient with greater than 50% spent counseling the patient and coordination of care.
== END 2021-02-01 15:47 | disposition home or self-care (01) ==
LOC: SC 15:46
PROVIDERS: ATTEND Nurse Practitioner Family
DX: G47.33 Obstructive sleep apnea (adult) (pediatric) (principal)

== ENCOUNTER 2021-03-15 08:33 | Outpatient (CLI) | payer MEDICARE, OTHER ==
--- NOTE | 2021-03-15 08:45 | SLEEP CARE CONSULTATION ---
Information from patient questionnaire entered by Avelina Marquez. I have reviewed and concur with the information entered by Avelina Marquez. This document represents the service I personally performed and the decisions made by , Mila Dang ARNP. History of Present Illness Service Date and Time: 03/15/2021 0833 Previous diagnosis: Very Severe, Obstructive Sleep Apnea-Hypopnea Syndrome AHI: 61.0 (in 2019) Reason for follow up: other (6 week with pressure change) Equipment type: CPAP Equipment obtained from: [employer] (getting supplies as needed) Mask style: Nasal Backup mask available: Yes (old mask) Last cushion change: yesterday Prior sleep studies: Yes Year and Where: 2019 - [facility] Type of Sleep Study: Polysomnography HPI additional information: SUKUMAR SWEENEY was diagnosed to have very severe, AHI 61.0, obstructive sleep apnea-hypopnea syndrome and returns via Telehealth visit today for CPAP therapy 6 week pressure change follow-up. CPAP Compliance Data - Data Reviewed with Patient Average duration of nightly device use: 6 hr 10 min Compliance rate %: 92.9 (42 days) Current pressure setting (cmH2O): 8-12 Humidity settin Heated hose settin Average residual AHI: 3.7 Average large leak: 6 min 21 sec Subjective Patient concerns: denies: aerophagia, mask discomfort, air blowing in eyes, mask leak noise, condensation in mask/hose, nasal congestion, dry mouth, nose, throat, epistaxis, other Observed to snore while using device: No Current pressure setting perceived as: comfortable On therapy, patient: reports: sleeping better, awakening more refreshed, being more awake and alert during the day, more rested overall. denies: drowsiness while driving Initial [place] Sleepiness Scale score: 15 (in 2019) Current [place] Sleepiness Scale score: 6 Allergies and Home Medications Home medication list reviewed: Yes (no new meds) Review of Systems Review of systems same as previous: Yes (no changes) Physical Exam Vital signs obtained and entered by: Telehealth visit to reduce exposure during covid pandemic Height: 5 ft 2.5 in Impression and Plan 1. Obstructive Sleep Apnea-Hypopnea Syndrome, very severe, with good treatment compliance and good apnea control. On CPAP therapy, the patient has better sleep quality and is more rested overall. I discussed with patient that the pressure did not get changed as ordered at his last visit. He requested the pressure to stay at the 8-12 cmH2O because it is comfortable and is controlling the apnea well. We will not change his pressure today and he will follow up next year. He has no concerns or issues like dry mouth, skin irritation, nasal congestion, aerophagia or epistaxis. He was encouraged to lose weight. He voiced understanding. Patient's apnea severity and rationale for treatment to reduce apnea, improve sleep quality and reduce cardiovascular and cerebrovascular events was reviewed. I also reviewed the benefit of consistent device use of CPAP for hypertension, cardiac disease, and diabetes. * Continue auto CPAP pressure at 8-12 cmH2O * Notify me if snoring with mask or feeling that the pressure is too much or too little * Attempt to lose weight * Call this office if any problems using CPAP * Return for follow up in 1 year, or sooner if concerns arise Counseling Topics: Spare mask, Weight loss health impact Visit Type: Telehealth Video Video Type: VSee Patient Location: Home Location of Provider: Office Patient agrees and consents to this telehealth visit type: Yes Time Spent with Patient (minutes): 12 Provider Statement: I spent 100% of the Telehealth Video Call with the patient with greater than 50% spent counseling the patient and coordination of care.
== END 2021-03-15 08:34 | disposition home or self-care (01) ==
LOC: SC 08:33
PROVIDERS: ATTEND Nurse Practitioner Family
DX: G47.33 Obstructive sleep apnea (adult) (pediatric) (principal)

== ENCOUNTER 2021-04-07 08:00 | Outpatient (CLI) | payer MEDICARE, OTHER ==
[2021-04-07 11:36] LABS: BASOPHILS % (AUTO) 0.6 %; EOSINOPHILS # (AUTO) 0.1 10^3/uL (0.0-0.7); EOSINOPHILS % (AUTO) 1.7 %; HCT - HEMATOCRIT 38.1 % (42.0-52.0); HGB - HEMOGLOBIN 12.3 g/dL (14.0-18.0); LYMPHOCYTES # (AUTO) 0.9 10^3/uL (1.5-3.5); LYMPHOCYTES % (AUTO) 17.8 %; MEAN CORPUSCULAR HGB CONC 32.3 g/dL (32.0-36.0); MEAN CORPUSCULAR VOLUME 105.2 fL (80.0-94.0); MEAN PLATELET VOLUME 11.6 fL (7.4-11.4); MONOCYTES # (AUTO) 0.5 10^3/uL (0.0-1.0); MONOCYTES % (AUTO) 8.9 %; NEUTROPHILS # (AUTO) 3.6 10^3/uL (1.5-6.6); NEUTROPHILS % (AUTO) 70.4 %; PLT - PLATELET COUNT 102 10^3/uL (130-450); RED BLOOD COUNT 3.62 10^6/uL (4.70-6.10); RED CELL DISTRIBUTION WIDTH 13.5 % (12.0-15.0); WHITE BLOOD COUNT 5.2 x10^3/uL (4.8-10.8)
[2021-04-07 11:54] LABS: ESTIMATED AVERAGE GLUCOSE 157 mg/dL (70-100); HEMOGLOBIN A1c% 7.1 % (4.27-6.07)
[2021-04-07 11:55] LABS: ALBUMIN 4.2 g/dL (3.2-5.5); ALBUMIN/GLOBULIN RATIO 1.8 (1.0-2.2); ALKALINE PHOSPHATASE 60 IU/L (42-121); ALT ALANINE AMINOTRANSFERASE 15 IU/L (10-60); AST ASPARTATE AMINOTRANSFERASE 20 IU/L (10-42); BILIRUBIN,TOTAL 1.7 mg/dL (0.2-1.0); BUN - BLOOD UREA NITROGEN 33 mg/dL (6-20); CALCIUM 9.2 mg/dL (8.5-10.3); CARBON DIOXIDE - CO2 25 mmol/L (21-32); CHLORIDE 104 mmol/L (101-111); CHOL/HDL RATIO 2.5 (<5.0); CHOLESTEROL 136 mg/dL; CREATININE 1.5 mg/dL (0.6-1.2); GFR - MDRD 47 (>89); GLUCOSE 153 mg/dL (70-100); HDL CHOLESTEROL 55 mg/dL; LDL CHOLESTEROL,CALCULATED 63 mg/dL; LDL/HDL RATIO 1.1 (<3.6); POTASSIUM 4.7 mmol/L (3.5-5.0); SODIUM 140 mmol/L (135-145); TOTAL PROTEIN 6.6 g/dL (6.7-8.2); TRIGLYCERIDES 92 mg/dL; VLDL CHOLESTEROL 18 mg/dL
[2021-04-07 12:04] LABS: THYROID STIMULATING HORMONE 4.34 uIU/mL (0.34-5.60)
== END 2021-04-07 23:59 | disposition home or self-care (01) ==
LOC: LAB.WCP 08:00
PROVIDERS: ATTEND Family Medicine
DX: E11.9 Type 2 diabetes mellitus without complications (principal)
CPT/HCPCS: 36415; 80053; 80061; 83036; 83721; 84443; 85025

== ENCOUNTER 2021-09-06 07:12 | Outpatient (CLI) | payer MEDICARE, OTHER ==
[2021-09-06 12:34] LABS: ESTIMATED AVERAGE GLUCOSE 151 mg/dL (70-100); HEMOGLOBIN A1c% 6.9 % (4.27-6.07)
[2021-09-06 12:40] LABS: ALBUMIN 4.4 g/dL (3.2-5.5); ALBUMIN/GLOBULIN RATIO 1.9 (1.0-2.2); ALKALINE PHOSPHATASE 53 IU/L (42-121); ALT ALANINE AMINOTRANSFERASE 17 IU/L (10-60); AST ASPARTATE AMINOTRANSFERASE 23 IU/L (10-42); BILIRUBIN,TOTAL 1.7 mg/dL (0.2-1.0); BUN - BLOOD UREA NITROGEN 35 mg/dL (6-20); CALCIUM 8.6 mg/dL (8.5-10.3); CARBON DIOXIDE - CO2 26 mmol/L (21-32); CHLORIDE 102 mmol/L (101-111); CHOL/HDL RATIO 2.9 (<5.0); CHOLESTEROL 155 mg/dL; CREATININE 1.4 mg/dL (0.6-1.2); GFR - MDRD 50 (>89); GLUCOSE 112 mg/dL (70-100); HDL CHOLESTEROL 53 mg/dL; LDL CHOLESTEROL,CALCULATED 81 mg/dL; LDL/HDL RATIO 1.5 (<3.6); POTASSIUM 4.2 mmol/L (3.5-5.0); SODIUM 139 mmol/L (135-145); TOTAL PROTEIN 6.7 g/dL (6.7-8.2); TRIGLYCERIDES 107 mg/dL; VLDL CHOLESTEROL 21 mg/dL
[2021-09-06 13:26] LABS: BASOPHILS % (AUTO) 0.6 %; EOSINOPHILS # (AUTO) 0.1 10^3/uL (0.0-0.7); EOSINOPHILS % (AUTO) 1.7 %; HCT - HEMATOCRIT 40.3 % (42.0-52.0); HGB - HEMOGLOBIN 13.3 g/dL (14.0-18.0); LYMPHOCYTES # (AUTO) 1.1 10^3/uL (1.5-3.5); LYMPHOCYTES % (AUTO) 24.4 %; MEAN CORPUSCULAR HEMOGLOBIN 34.5 pg (27.0-31.0); MEAN CORPUSCULAR VOLUME 104.7 fL (80.0-94.0); MEAN PLATELET VOLUME 11.4 fL (7.4-11.4); MONOCYTES # (AUTO) 0.4 10^3/uL (0.0-1.0); MONOCYTES % (AUTO) 8.5 %; NEUTROPHILS % (AUTO) 63.9 %; PLT - PLATELET COUNT 111 10^3/uL (130-450); RED BLOOD COUNT 3.85 10^6/uL (4.70-6.10); RED CELL DISTRIBUTION WIDTH 13.4 % (12.0-15.0); WHITE BLOOD COUNT 4.7 x10^3/uL (4.8-10.8)
== END 2021-09-06 23:59 | disposition home or self-care (01) ==
LOC: LAB.WCP 07:12
PROVIDERS: ATTEND Family Medicine
DX: E11.9 Type 2 diabetes mellitus without complications (principal)
CPT/HCPCS: 36415; 80053; 80061; 83036; 83721; 85025

== ENCOUNTER 2021-09-20 08:58 | Outpatient (CLI) | payer MEDICARE, OTHER | END 2021-09-20 08:59 | disposition home or self-care (01) | LOC: DI 08:58 | PROVIDERS: ATTEND Family Medicine | DX: I48.0 Paroxysmal atrial fibrillation (principal); I70.0 Atherosclerosis of aorta; I07.1 Rheumatic tricuspid insufficiency; I77.810 Thoracic aortic ectasia; I28.8 Other diseases of pulmonary vessels | CPT/HCPCS: 93306 ==

== ENCOUNTER 2021-12-07 07:07 | Outpatient (CLI) | payer MEDICARE, OTHER ==
[2021-12-07 11:53] LABS: ABSOLUTE RETICS # AUTO 0.091 10^6/uL (0.020-0.110); BASOPHILS % (AUTO) 0.8 %; EOSINOPHILS # (AUTO) 0.1 10^3/uL (0.0-0.7); EOSINOPHILS % (AUTO) 2.1 %; HCT - HEMATOCRIT 40.9 % (42.0-52.0); HGB - HEMOGLOBIN 13.8 g/dL (14.0-18.0); LYMPHOCYTES # (AUTO) 1.1 10^3/uL (1.5-3.5); LYMPHOCYTES % (AUTO) 23.4 %; MEAN CORPUSCULAR HEMOGLOBIN 34.6 pg (27.0-31.0); MEAN CORPUSCULAR HGB CONC 33.7 g/dL (32.0-36.0); MEAN CORPUSCULAR VOLUME 102.5 fL (80.0-94.0); MEAN PLATELET VOLUME 11.7 fL (7.4-11.4); MONOCYTES # (AUTO) 0.4 10^3/uL (0.0-1.0); NEUTROPHILS # (AUTO) 3.2 10^3/uL (1.5-6.6); NEUTROPHILS % (AUTO) 65.1 %; PLT - PLATELET COUNT 118 10^3/uL (130-450); RED BLOOD COUNT 3.99 10^6/uL (4.70-6.10); RED CELL DISTRIBUTION WIDTH 13.2 % (12.0-15.0); RETICULOCYTE COUNT % (AUTO) 2.27 % (0.5-2.3); WHITE BLOOD COUNT 4.9 x10^3/uL (4.8-10.8)
[2021-12-07 12:26] LABS: PARTIAL THROMBOPLASTIN TIME 37.9 secs (24.9-33.3)
[2021-12-07 12:29] LABS: INR 1.6 (0.8-1.2); PT - PROTHROMBIN TIME 17.4 secs (9.9-12.6)
[2021-12-07 12:33] LABS: ESTIMATED AVERAGE GLUCOSE 160 mg/dL (70-100); HEMOGLOBIN A1c% 7.2 % (4.27-6.07)
[2021-12-07 12:37] LABS: ALBUMIN 4.5 g/dL (3.2-5.5); ALBUMIN/GLOBULIN RATIO 1.8 (1.0-2.2); ALKALINE PHOSPHATASE 59 IU/L (42-121); ALT ALANINE AMINOTRANSFERASE 18 IU/L (10-60); AST ASPARTATE AMINOTRANSFERASE 24 IU/L (10-42); BILIRUBIN,TOTAL 1.7 mg/dL (0.2-1.0); BUN - BLOOD UREA NITROGEN 34 mg/dL (6-20); CALCIUM 9.2 mg/dL (8.5-10.3); CARBON DIOXIDE - CO2 27 mmol/L (21-32); CHLORIDE 102 mmol/L (101-111); CHOL/HDL RATIO 2.8 (<5.0); CHOLESTEROL 158 mg/dL; CREATININE 1.5 mg/dL (0.6-1.2); GFR - MDRD 46 (>89); GLUCOSE 145 mg/dL (70-100); HDL CHOLESTEROL 57 mg/dL; LDL CHOLESTEROL,CALCULATED 79 mg/dL; LDL/HDL RATIO 1.4 (<3.6); POTASSIUM 5.3 mmol/L (3.5-5.0); SODIUM 139 mmol/L (135-145); TRIGLYCERIDES 109 mg/dL; VLDL CHOLESTEROL 22 mg/dL
== END 2021-12-07 07:08 | disposition home or self-care (01) ==
LOC: LAB.N 07:07
PROVIDERS: ATTEND Family Medicine
DX: D61.818 Other pancytopenia (principal); E11.9 Type 2 diabetes mellitus without complications
CPT/HCPCS: 36415; 80053; 80061; 83036; 83721; 85025; 85045; 85610; 85730

== ENCOUNTER 2022-05-11 09:43 | Outpatient (CLI) | payer MEDICARE, OTHER ==
--- NOTE | 2022-05-11 08:52 | SLEEP CARE CONSULTATION ---
Information from patient questionnaire entered by Vida Rosales MA. I have reviewed and concur with the information entered by Vida Rosales MA. This document represents the service I personally performed and the decisions made by , Mila Dang ARNP. History of Present Illness Service Date and Time: 05/11/2022 0840 Previous diagnosis: Very Severe, Obstructive Sleep Apnea-Hypopnea Syndrome AHI: 61.0 (in 2018) Reason for follow up: annual (LAST SEEN 03/2021,) Accompanied by: Daughter Equipment type: CPAP Equipment obtained from: [employer] (getting supplies as needed) Mask style: Nasal Mask brand: Resmed (Airfit [id number]) Backup mask available: Yes (old mask) Last cushion change: Sunday Prior sleep studies: Yes Year and Where: 2018 - [facility] Type of Sleep Study: Polysomnography HPI additional information: SUKUMAR SWEENEY was diagnosed to have very severe, AHI 61.0, obstructive sleep apnea-hypopnea syndrome and returns via video telehealth visit today for CPAP therapy annual follow-up. Sleep Study - Results Type of Sleep Study: Polysomnography Prior sleep studies: Yes Year and Where: 2018 - [facility] CPAP Compliance Data - Data Reviewed with Patient Average duration of nightly device use: 6 HOURS 2 MINUTES Compliance rate %: 87.8 (02/08/22-05/08/22; 87/90 days used) Current pressure setting (cmH2O): 8-12 Humidity settin Heated hose settin Average residual AHI: 3.3 Average large leak: 0 Subjective Missed days of use due to: reports: illness (in hospital for ablation) Patient concerns: denies: aerophagia, mask discomfort, air blowing in eyes, mask leak noise, condensation in mask/hose, nasal congestion, dry mouth, nose, throat, epistaxis, other Observed to snore while using device: No Current pressure setting perceived as: comfortable On therapy, patient: reports: sleeping better, awakening more refreshed, being more awake and alert during the day, more rested overall. denies: drowsiness while driving Initial [place] Sleepiness Scale score: 15 (in 2019) Current [place] Sleepiness Scale score: 6 Allergies and Home Medications Home medication list reviewed: Yes (Eliquis 5 mg bid) Allergy and home medication list: Allergies ibuprofen Adverse Reaction (Verified 11/27/17 22:56) Unknown Review of Systems Review of systems same as previous: No (Ablation 04-20-2022) Physical Exam Vital signs obtained and entered by: MAGNUS WOODWARD, PRE TELEMED APPT, Height: 5 ft 2.5 in Weight: 159 lb (pt reported) Body Mass Index: 28.6 BMI Classification: Overweight Impression and Plan 1. Obstructive Sleep Apnea-Hypopnea Syndrome, very severe, with good treatment compliance and good apnea control. On CPAP therapy, the patient has better sleep quality and is more rested overall. Patient has significant improvement of his sleep apnea and is satisfied with current CPAP therapy. Patient denies problems with oral dryness, nasal congestion, epistaxis, skin irritation or aerophagia. Patient's apnea severity and rationale for treatment to reduce apnea, improve sleep quality and reduce cardiovascular and cerebrovascular events was reviewed. Patient had a recent ablation for his atrial flutter and is on Eliquis. I also reviewed the benefit of consistent device use of CPAP for hypertension, cardiac disease (Aflutter) and diabetes. 2. Overweight, unspecified. Currently patients BMI is 28.6. Thus patient is advised to lose weight. Weight loss can be done with reducing portion size, reducing refined foods and balancing content with vegetables, fruit and whole grain foods. In addition, patient encouraged to get regular exercise. The patient's CPAP pressure range should accommodate some weight loss. * Continue auto CPAP pressure at 8-12 cmH2O * Update supplies * Notify me if snoring with mask or feeling that the pressure is too much or too little * Attempt to lose weight * Call this office if any problems using CPAP * Return for follow up in 1 year, or sooner if concerns arise Counseling Topics: Spare mask, Weight loss health impact Visit Type: Telehealth Video ([phone]) Video Type: Doximity Patient Location: Home Other Participants: Child (Daughter) Location of Provider: Office Patient agrees and consents to this telehealth visit type: Yes Patient agrees to have their insurance billed: Yes Time Spent with Patient (minutes): 16 Provider Statement: I spent 100% of the Telehealth Video Call with the patient with greater than 50% spent counseling the patient and coordination of care.
== END 2022-05-11 09:44 | disposition home or self-care (01) ==
LOC: SC 09:43
PROVIDERS: ATTEND Nurse Practitioner Family
DX: G47.33 Obstructive sleep apnea (adult) (pediatric) (principal); E66.3 Overweight; Z68.28 Body mass index [BMI] 28.0-28.9, adult

== ENCOUNTER 2022-06-13 07:28 | Outpatient (CLI) | payer MEDICARE, OTHER ==
[2022-06-13 12:52] LABS: ESTIMATED AVERAGE GLUCOSE 157 mg/dL (70-100); HEMOGLOBIN A1c% 7.1 % (4.27-6.07)
== END 2022-06-13 07:29 | disposition home or self-care (01) ==
LOC: LAB.N 07:28
PROVIDERS: ATTEND Physician Assistant
DX: E11.9 Type 2 diabetes mellitus without complications (principal)
CPT/HCPCS: 36415; 83036

== ENCOUNTER 2022-11-10 07:09 | Outpatient (CLI) | payer MEDICARE, OTHER ==
[2022-11-10 12:28] LABS: BASOPHILS % (AUTO) 0.9 %; EOSINOPHILS # (AUTO) 0.1 10^3/uL (0.0-0.7); EOSINOPHILS % (AUTO) 2.7 %; HCT - HEMATOCRIT 38.7 % (42.0-52.0); HGB - HEMOGLOBIN 12.4 g/dL (14.0-18.0); LYMPHOCYTES # (AUTO) 0.9 10^3/uL (1.5-3.5); LYMPHOCYTES % (AUTO) 20.3 %; MEAN CORPUSCULAR HEMOGLOBIN 33.2 pg (27.0-31.0); MEAN CORPUSCULAR VOLUME 103.5 fL (80.0-94.0); MEAN PLATELET VOLUME 12.1 fL (7.4-11.4); MONOCYTES # (AUTO) 0.4 10^3/uL (0.0-1.0); NEUTROPHILS % (AUTO) 67.6 %; PLT - PLATELET COUNT 102 10^3/uL (130-450); RED BLOOD COUNT 3.74 10^6/uL (4.70-6.10); RED CELL DISTRIBUTION WIDTH 13.7 % (12.0-15.0); WHITE BLOOD COUNT 4.4 x10^3/uL (4.8-10.8)
[2022-11-10 12:42] LABS: ALBUMIN 4.2 g/dL (3.2-5.5); ALBUMIN/GLOBULIN RATIO 1.5 (1.0-2.2); ALKALINE PHOSPHATASE 72 IU/L (42-121); ALT ALANINE AMINOTRANSFERASE 16 IU/L (10-60); AST ASPARTATE AMINOTRANSFERASE 23 IU/L (10-42); BILIRUBIN,TOTAL 1.6 mg/dL (0.2-1.0); BUN - BLOOD UREA NITROGEN 48 mg/dL (6-20); CALCIUM 8.6 mg/dL (8.5-10.3); CARBON DIOXIDE - CO2 22 mmol/L (21-32); CHLORIDE 106 mmol/L (101-111); CHOL/HDL RATIO 2.4 (<5.0); CHOLESTEROL 146 mg/dL; CREATININE 1.6 mg/dL (0.6-1.2); GFR - MDRD 43 (>89); GLUCOSE 120 mg/dL (70-100); HDL CHOLESTEROL 60 mg/dL; LDL CHOLESTEROL,CALCULATED 74 mg/dL; LDL/HDL RATIO 1.2 (<3.6); POTASSIUM 4.6 mmol/L (3.5-5.0); SODIUM 141 mmol/L (135-145); TRIGLYCERIDES 62 mg/dL; VLDL CHOLESTEROL 12 mg/dL
[2022-11-10 12:52] LABS: ESTIMATED AVERAGE GLUCOSE 160 mg/dL (70-100); HEMOGLOBIN A1c% 7.2 % (4.27-6.07); THYROID STIMULATING HORMONE 3.59 uIU/mL (0.34-5.60)
== END 2022-11-10 07:10 | disposition home or self-care (01) ==
LOC: LAB.N 07:09
PROVIDERS: ATTEND Physician Assistant
DX: I10 Essential (primary) hypertension (principal); E78.5 Hyperlipidemia, unspecified; Z12.5 Encounter for screening for malignant neoplasm of prostate; E03.9 Hypothyroidism, unspecified; E11.9 Type 2 diabetes mellitus without complications
CPT/HCPCS: 36415; 80053; 80061; 83036; 84443; 85025; G0103; 83721; 84153

== ENCOUNTER 2023-02-07 07:17 | Outpatient (CLI) | payer MEDICARE, OTHER ==
[2023-02-07 12:11] LABS: ESTIMATED AVERAGE GLUCOSE 151 mg/dL (70-100); HEMOGLOBIN A1c% 6.9 % (4.27-6.07)
[2023-02-07 12:22] LABS: CALCIUM 8.8 mg/dL (8.5-10.3); CREATININE 1.3 mg/dL (0.6-1.2); POTASSIUM 5.1 mmol/L (3.5-5.0)
== END 2023-02-07 07:18 | disposition home or self-care (01) ==
LOC: LAB.N 07:17
PROVIDERS: ATTEND Physician Assistant
DX: E11.9 Type 2 diabetes mellitus without complications (principal)
CPT/HCPCS: 36415; 80048; 83036

== ENCOUNTER 2023-05-16 14:54 | Outpatient (CLI) | payer MEDICARE, OTHER ==
[2023-05-16 14:46] VITALS: BP 142/59
--- NOTE | 2023-05-16 14:46 | SLEEP CARE CONSULTATION ---
Information from patient questionnaire entered by Angelique Arias. I have reviewed and concur with the information entered by Angelique Arias. This document represents the service I personally performed and the decisions made by me, Mila Dang ARNP. History of Present Illness Service Date and Time: 05/16/2023 1440 Previous diagnosis: Very Severe, Obstructive Sleep Apnea-Hypopnea Syndrome AHI: 61.0 (in 2019) Reason for follow up: annual (Last seen 04/2022) Accompanied by: clementina Vale Equipment type: CPAP (Dreamstation 2; s/u ) Equipment obtained from: [facility] (getting supplies as needed) Mask style: Nasal Mask brand: Resmed (AirFit [id number]) Backup mask available: Yes (old mask) Last cushion change: Sunday Prior sleep studies: Yes Year and Where: 2018 - [facility] Type of Sleep Study: Polysomnography HPI additional information: SUKUMAR SWEENEY was diagnosed to have very severe, AHI 61, obstructive sleep apnea-hypopnea syndrome and returns via telehealth visit today for CPAP therapy annual follow-up. Sleep Study - Results Type of Sleep Study: Polysomnography Prior sleep studies: Yes Year and Where: 2018 - [facility] CP[facility] Compliance Data - Data Reviewed with Patient Average duration of nightly device use: 6 h 42 min Compliance rate %: 92.9 (176/182 days used) Current pressure setting (cmH2O): 8-12 Humidity settin Heated hose settin Average residual AHI: 4.1 Average large leak: 0 sec Subjective Missed days of use due to: reports: other (forget to put on) Patient concerns: denies: aerophagia, mask discomfort, air blowing in eyes, mask leak noise, condensation in mask/hose, nasal congestion, dry mouth, nose, throat, epistaxis Observed to snore while using device: Yes (often) Current pressure setting perceived as: comfortable On therapy, patient: reports: sleeping better, awakening more refreshed, being more awake and alert during the day, more rested overall. denies: drowsiness while driving Initial [place] Sleepiness Scale score: 15 (in 2019) Current [place] Sleepiness Scale score: 7 Allergies and Home Medications Known drug allergies: Yes (ibuprofen) Drug allergies reviewed: Yes Home medication list reviewed: Yes (no changes) Allergy and home medication list: Allergies ibuprofen Adverse Reaction Unknown Review of Systems Review of systems same as previous: Yes (no changes) Physical Exam Vital signs obtained and entered by: Mila Perez NP Blood Pressure: 142/59 (per pt) Height: 5 ft 2.5 in Weight: 161 lb (per pt) Body Mass Index: 29.0 BMI Classification: Overweight Impression and Plan 1. Obstructive Sleep Apnea-Hypopnea Syndrome, very severe, with good treatment compliance and good apnea control. On CPAP therapy, the patient has better sleep quality and is more rested overall. Patient states he often is heard snoring when using his CPAP. To resolve snore, the CPAP pressure will be changed to 10- 13 cmH20. Patient advised to contact this office if pressure change uncomfortable or if pressure change does not resolve snore. Patient has significant improvement of their sleep apnea and is satisfied with current CPAP therapy. Patient denies problems with oral dryness, nasal congestion, epistaxis, skin irritation or aerophagia. Patient's apnea severity and rationale for treatment to reduce apnea, improve sleep quality and reduce cardiovascular and cerebrovascular events was reviewed. I also reviewed the benefit of consistent device use of CPAP for hypertension, arrhythmia and diabetes. 2. Overweight, unspecified. Currently patients BMI is 29. Obesity increases the risk of apnea, CPAP pressure requirements and overall health risks especially cardiovascular and diabetes. Thus patient is advised to lose weight. * Change auto CPAP pressure to 10-13 cmH2O * Update supply prescription * Notify me if snoring with mask or feeling that the pressure is too much or too little * Attempt to lose weight * Call this office if any problems using CPAP * Return for follow up in 1 year, or sooner if concerns arise Counseling Topics: Spare mask, Weight loss health impact Visit Type: Telehealth Phone Video Type: Doximity Patient Location: Home Location of Provider: Office Patient agrees and consents to this telehealth visit type: Yes Patient agrees to have their insurance billed: Yes Time Spent with Patient (minutes): 18 Provider Statement: I spent 100% of the Telehealth Phone Call with the patient with greater than 50% spent counseling the patient and coordination of care.
== END 2023-05-16 14:55 | disposition home or self-care (01) ==
LOC: SC 14:54
PROVIDERS: ATTEND Nurse Practitioner Family
DX: G47.33 Obstructive sleep apnea (adult) (pediatric) (principal); E66.3 Overweight; Z68.29 Body mass index [BMI] 29.0-29.9, adult

== ENCOUNTER 2023-08-02 07:05 | Outpatient (CLI) | payer MEDICARE, OTHER ==
[2023-08-02 12:13] LABS: CREATININE,URINE 94.9 mg/dL; MICROALBUM/CREATININE RATIO,UR 159.1 ug/mg (<30.0); MICROALBUMIN,URINE 15.1 mg/dL
[2023-08-02 12:15] LABS: ESTIMATED AVERAGE GLUCOSE 154 mg/dL (70-100)
[2023-08-02 12:20] LABS: ALBUMIN 4.2 g/dL (3.2-5.5); ALKALINE PHOSPHATASE 73 IU/L (42-121); ALT ALANINE AMINOTRANSFERASE 18 IU/L (10-60); AST ASPARTATE AMINOTRANSFERASE 21 IU/L (10-42); BUN - BLOOD UREA NITROGEN 44 mg/dL (6-20); CARBON DIOXIDE - CO2 25 mmol/L (21-32); CHLORIDE 107 mmol/L (101-111); CHOLESTEROL 139 mg/dL; CREATININE 1.6 mg/dL (0.6-1.3); GFR - MDRD 43 (>89); GLUCOSE 141 mg/dL (74-104); HDL CHOLESTEROL 46 mg/dL; LDL CHOLESTEROL,CALCULATED 61 mg/dL; LDL/HDL RATIO 1.3 (<3.6); POTASSIUM 4.7 mmol/L (3.5-4.5); SODIUM 141 mmol/L (135-145); TOTAL PROTEIN 6.3 g/dL (6.4-8.9); TRIGLYCERIDES 158 mg/dL (48-352); VLDL CHOLESTEROL 32 mg/dL
[2023-08-02 12:22] LABS: BASOPHILS % (AUTO) 0.6 %; EOSINOPHILS # (AUTO) 0.1 10^3/uL (0.0-0.7); EOSINOPHILS % (AUTO) 2.8 %; HCT - HEMATOCRIT 37.8 % (42.0-52.0); HGB - HEMOGLOBIN 12.4 g/dL (14.0-18.0); LYMPHOCYTES # (AUTO) 1.2 10^3/uL (1.5-3.5); LYMPHOCYTES % (AUTO) 25.8 %; MEAN CORPUSCULAR HEMOGLOBIN 33.7 pg (27.0-31.0); MEAN CORPUSCULAR HGB CONC 32.8 g/dL (32.0-36.0); MEAN CORPUSCULAR VOLUME 102.7 fL (80.0-94.0); MEAN PLATELET VOLUME 12.4 fL (7.4-11.4); MONOCYTES # (AUTO) 0.4 10^3/uL (0.0-1.0); MONOCYTES % (AUTO) 8.2 %; NEUTROPHILS # (AUTO) 2.9 10^3/uL (1.5-6.6); PLT - PLATELET COUNT 104 10^3/uL (130-450); RED BLOOD COUNT 3.68 10^6/uL (4.70-6.10); RED CELL DISTRIBUTION WIDTH 13.8 % (12.0-15.0); WHITE BLOOD COUNT 4.7 x10^3/uL (4.8-10.8)
== END 2023-08-02 07:06 | disposition home or self-care (01) ==
LOC: LAB.N 07:05
PROVIDERS: ATTEND Physician Assistant
DX: E11.9 Type 2 diabetes mellitus without complications (principal); E78.5 Hyperlipidemia, unspecified
CPT/HCPCS: 36415; 80053; 80061; 82043; 82570; 83036; 83721; 85025

== ENCOUNTER 2024-02-01 07:21 | Outpatient (CLI) | payer MEDICARE, OTHER ==
[2024-02-01 12:12] LABS: BASOPHILS % (AUTO) 0.9 %; EOSINOPHILS # (AUTO) 0.2 10^3/uL (0.0-0.7); EOSINOPHILS % (AUTO) 3.9 %; HCT - HEMATOCRIT 39.3 % (42.0-52.0); HGB - HEMOGLOBIN 12.8 g/dL (14.0-18.0); LYMPHOCYTES % (AUTO) 22.9 %; MEAN CORPUSCULAR HGB CONC 32.6 g/dL (32.0-36.0); MEAN CORPUSCULAR VOLUME 104.5 fL (80.0-94.0); MEAN PLATELET VOLUME 12.2 fL (7.4-11.4); MONOCYTES # (AUTO) 0.3 10^3/uL (0.0-1.0); MONOCYTES % (AUTO) 7.3 %; NEUTROPHILS # (AUTO) 2.8 10^3/uL (1.5-6.6); NEUTROPHILS % (AUTO) 64.5 %; PLT - PLATELET COUNT 103 10^3/uL (130-450); RED BLOOD COUNT 3.76 10^6/uL (4.70-6.10); RED CELL DISTRIBUTION WIDTH 13.7 % (12.0-15.0); WHITE BLOOD COUNT 4.4 x10^3/uL (4.8-10.8)
[2024-02-01 12:31] LABS: ESTIMATED AVERAGE GLUCOSE 171 mg/dL (70-100); HEMOGLOBIN A1c% 7.6 % (4.27-6.07)
[2024-02-01 12:54] LABS: ALBUMIN 4.2 g/dL (3.2-5.5); ALBUMIN/GLOBULIN RATIO 1.8 (1.0-2.2); BILIRUBIN,TOTAL 1.7 mg/dL (0.2-1.0); CALCIUM 11.1 mg/dL (8.5-10.3); CREATININE 1.6 mg/dL (0.6-1.3); POTASSIUM 4.8 mmol/L (3.5-4.5); TOTAL PROTEIN 6.6 g/dL (6.4-8.9)
== END 2024-02-01 07:22 | disposition home or self-care (01) ==
LOC: LAB.N 07:21
PROVIDERS: ATTEND Physician Assistant
DX: E11.9 Type 2 diabetes mellitus without complications (principal); Z12.5 Encounter for screening for malignant neoplasm of prostate
CPT/HCPCS: 36415; 80053; 83036; 85025; G0103; 84153